=== PATIENT | male | born 1945 | race Caucasian/White ===

== ENCOUNTER 2018-08-30 11:00 | Inpatient (IN) | payer MEDICARE ==
[~2018-08-30] VITALS: Ht 172.7 cm; Wt 106.1 kg
--- OUTSIDE RECORDS SUMMARY | 2018-08-30 11:03 | XMS REPORT | Clinical Summary ---
Author Author NE[facility]MIAH [facility] Address Unknown Phone Unavailable Care Team Providers Care [employer] Name Role Phone Cristina Mayer MD PCP Unavailable Allergies No Known Allergies Medications End Date Status Medication Sig Dispensed Refills Start Date Active carvedilol (COREG) 6.25 Take 6.25 mg 0 MG tablet by mouth 2 (two) times daily with breakfast and dinner. Active lisinopril Take 2.5 mg 0 (PRINIVIL,ZESTRIL) 2.5 MG by mouth tablet daily. Active spironolactone Take 25 mg by 0 (ALDACTONE) 25 MG tablet mouth daily. Active sildenafil (VIAGRA) 50 MG Take 50 mg by 0 tablet mouth daily as needed for Erectile Dysfunction. Active albuterol HFA (VENTOLIN Inhale 2 0 HFA) 90 mcg/actuation puffs by inhaler mouth via inhaler every 6 (six) hours as needed for Wheezing. Active albuterol (PROVENTIL) 2.5 Take 2.5 mg 0 mg /3 mL (0.083 %) by nebulizer solution nebulization every 6 (six) hours as needed for Wheezing. Active amiodarone (PACERONE) 100 Take 100 mg 0 MG tablet by mouth daily. Active budesonide-formoterol Inhale 2 0 (SYMBICORT) 160-4.5 puffs by mcg/actuation inhaler mouth via inhaler 2 (two) times daily. Active bumetanide (BUMEX) 0.5 MG Take 0.5 mg 0 tablet by mouth daily. Active omega-3 fatty Take by mouth 0 acids-vitamin E 1,000 mg daily. Cap Active pravastatin (PRAVACHOL) Take 40 mg by 0 40 MG tablet mouth daily. Active AMOXICILLIN ORAL Take 500 mg 0 by mouth 4 (four) times daily. Active metFORMIN (GLUCOPHAGE) Resume on 1 tablet 0 500 MG tablet 03/05 with 5 supper, then take 2 times daily with breakfast and supper.. Active warfarin (COUMADIN) 5 MG Take one 30 tablet 1 tablet tablet daily 5 at at 5 PM. Active Problems Problem Noted Date Cardiomyopathy, Echo 09/29/2014 EF <20%, Mibi 10/05/2014 Ef 29%, Echo 03/03/2015 02/04/2015 EF 20-24%, Wearing LifeVest DM (diabetes mellitus) 03/03/2015 Systolic congestive heart failure, NYHA class 2 03/03/2015 PAF (paroxysmal atrial fibrillation) 03/03/2015 History of [place] (myocardial infarction) 03/03/2015 History of complete AV block 03/03/2015 Pacemaker, Since 199003/03/2015 S/P DDD AICD implant, SJM, Left, No DFTs, and Right-sided dual chamber PPM 03/03/2015 in-situ, SJM, set to VVI 30, atrial lead turned off due to high impedence, 03/03/2015 CAD (coronary artery disease) 11/02/2014 HTN (hypertension) HLD (hyperlipidemia) COPD (chronic obstructive pulmonary disease) Social History Date Tobacco Use Types Packs/Day Years Used Former Smoker Alcohol Use Drinks/Week oz/Week Comments No Sex Assigned at Date Recorded Not on file Industry Job Start Date Occupation Not on file Not on file Not on file Travel End Travel History Travel Start No recent travel history available. Last Filed Vital Signs Not on file Plan of Treatment Not on file Implants Device Identifier Shelf Expiration Date Model / Serial / Lot Implanted Type Area Manufactur er 12/16/2016 [id number] - 62CM / [id number] / Lead, Defibrillator Right ICD N/A: Heart [employer]: Ventricular 62cm Protect[address] - CARD [id number] RHY:PACING Implanted: Qty: 1 on 03/03/2015 by Wes Land MD 01/15/2017 [id number] / [id number] / Icd,Dual Chamber Df4 Connector ICD Left: Chest ST PRABHJOT [address] Wong [id number] MEDICAL Implanted: Qty: 1 on 03/03/2015 by INC Wes Haines MD 09/02/2016 [id number] - 45CM / [id number] / Lead,Pacing Capsurefix Novus 45cm - Pacemakers N/A: Heart [employer]: [id number] CARD Implanted: Qty: 1 on 03/03/2015 by RHY:PACING Wes Haines MD SYS Results Not on fileafter 08/29/2017 Insurance Payer Benefit Subscriber ID Type Phone Address Plan / Group [facility] MEDIC[facility] AD[facility] Advance Directives For more information, please contact: [facility] [address] [place] [phone] Date Inactivated Comments Code Status Date Activated 03/04/2015 1:24 PM Full Code 03/03/2015 6:31 AM This code status was determined by: Patient 11/02/2014 6:59 PM Full Code 11/02/2014 10:45 AM This code status was determined by: Patient
[2018-08-30] MEDS ORDERED: VITAMIN D1000 UNI1 PO (11:43)
[2018-08-30] MEDS ORDERED: VITAMIN B-121000 MCG PO (11:43)
[2018-08-30] MEDS ORDERED: SPIRONOLACTONE25 MG PO (11:43)
[2018-08-30] MEDS ORDERED: FISH OIL 1,2001 EAC1 PO (11:43)
[2018-08-30] MEDS ORDERED: METFORMIN HCL500 MG PO (11:43)
[2018-08-30] MEDS ORDERED: AMIODARONE HCL200 MG PO (11:43)
[2018-08-30] MEDS ORDERED: WARFARIN SODIU2.5 MG PO (11:43)
[2018-08-30] MEDS ORDERED: FLOMAX0.4 MG PO (11:43)
[2018-08-30] MEDS ORDERED: PROAIR HFA INH8.5 GM INH (11:43)
[2018-08-30] MEDS ORDERED: PRAVASTATIN SOD40 MG PO (11:43)
[2018-08-30] MEDS ORDERED: LISINOPRIL2.5 MG PO (11:43)
[2018-08-30] MEDS ORDERED: BUMETANIDE1 MG PO (11:43)
[2018-08-30] MEDS ORDERED: SYMBICORT 16010.2 GM INH (11:43)
[2018-08-30] MEDS ORDERED: CARVEDILOL3.125 MG PO (11:43)
[2018-08-30 11:49] LABS: BASOPHILS # (AUTO) 0.1 (0.0-0.1); BASOPHILS % 0.4 % (0.0-1.0); EOSINOPHILS # (AUTO) 0.1 (0.0-0.4); EOSINOPHILS % 0.8 % (0.0-6.0); HEMATOCRIT 38.7 % (38.2-49.6); HEMOGLOBIN 12.6 g/dL (14.0-18.0); LYMPHOCYTES % 7.7 % (18.0-39.1); MEAN CORPUSCULAR HEMOGLOBIN 32.1 pg (28-32); MEAN CORPUSCULAR HGB CONC 32.6 g/dL (31-35); MEAN CORPUSCULAR VOLUME 98.5 fL (81-99); MONOCYTES % 7.6 % (4.4-11.3); NEUTROPHILS # (AUTO) 10.8 (2.1-6.9); PLATELET COUNT 313 x10e3/uL (140-360); RED BLOOD COUNT 3.93 x10e6/uL (4.3-5.7); RED CELL DISTRIBUTION WIDTH 17.2 % (11.7-14.4)
[2018-08-30 12:00] LABS: INR 2.75; PROTHROMBIN TIME 29.8 seconds (11.9-14.5)
[2018-08-30 12:01] LABS: PARTIAL THROMBOPLASTIN TIME 40.5 seconds (23.8-35.5)
[2018-08-30 12:08] LABS: ALBUMIN 3.5 g/dL (3.5-5.0); ANION GAP 18.4 mmol/L (8-16); CALCIUM 9.7 mg/dL (8.4-10.2); CREATININE, SERUM 1.75 mg/dL (0.72-1.25); MAGNESIUM 1.8 MG/DL (1.3-2.1); POTASSIUM 4.4 mmol/L (3.5-5.1)
[2018-08-30 12:14] LABS: CREATINE KINASE MB 3.4 ng/mL (0-5.0)
--- NOTE | 2018-08-30 12:57 | Diagnostic Imaging Report ---
EXAMINATION: CHEST SINGLE (PORTABLE) COMPARISON: None INDICATION: Fluid buildup, shortness of breath ^SOB, CHF ^[id number] ^1215 DISCUSSION: Frontal view of the chest obtained at 1219 hours. HEART AND MEDIASTINUM: The heart is enlarged with pacer/defibrillator wires. There are 2 pacemaker battery packs, one each side of the chest. The distal aspect of the wires are poorly visualized due to underpenetration of the image. LUNGS: Bibasilar airspace opacities either atelectasis or pneumonia.. Pulmonary vascular markings are prominent. No interstitial edema. PLEURA: Small effusions may be present. No pneumothorax BONES AND SOFT TISSUES: No focal osseous lesion. The soft tissues are normal. IMPRESSION: Cardiomegaly and pulmonary vascular congestion. Bibasilar atelectasis or infiltrate. Small effusions cannot be excluded. Signed by: Dr. Fabián Quarles MD on 08/30/2018 12:54 PM
[2018-08-30] MEDS ORDERED: FUROSEMIDE INJ 10 MG/ML 2 ML VIAL ONE (13:55)
[2018-08-30] MEDS ORDERED: DEXTROSE 50% SYRINGE 50 ML IV PRN (14:00)
[2018-08-30] MEDS ORDERED: FUROSEMIDE INJ 10 MG/ML 4 ML VIAL IV NR (14:00)
[2018-08-30] MEDS ORDERED: LEVALBUTEROL HCL SOLN NEBU 0.63 MG/3 ML NEB INH PRN (14:00)
[2018-08-30] MEDS ORDERED: ONDANSETRON HCL INJ 2MG/ML 2ML 2 MG/ML VIAL IV PRN (14:00)
--- OUTSIDE RECORDS SUMMARY | 2018-08-30 14:10 | XMS REPORT ---
Author Author [facility] Address Unknown Phone Unavailable Care Team Providers Care Machine Long Goods Helper Name Role Phone Geovani PEREZ Unavailable Unavailable Problems This patient has no known problems. Allergies, Adverse Reactions, Alerts This patient has no known allergies or adverse reactions. Medications This patient has no known medications. Results Test Description Test Time Test Comments Text Results Atomic Results Result Comments CHEST SINGLE (PORTABLE) 2018-08-30 12:35:00 [place] [id number] Patient Name: BREONNA PIMENTEL MR #: [id number] : 1945 Age/Sex: 73/M Req #: [id number] Adm Physician: Ordered by: AXEL PEREZ MD Report #: [id number] Location: ER Room/Bed: Procedure: [id number] DX/CHEST SINGLE (PORTABLE) Exam Date: 08/30/18 Exam Time: 1215 REPORT STATUS: Signed EXAMINATION: CHEST SINGLE (PORTABLE) RADHAMES RISON: None INDICATION: Fluid buildup, shortness of breath SOB, CHF [id number] 1215 DISCUSSION: Frontal view of the chest obtained at 1219 hours. HEART AND MEDIASTINUM: The heart is enlarged with pacer/defibrillator wires. There are 2 pacemaker battery packs, one each side of the chest. The distal aspect of the wires are poorly visualized due to underpenetration of the image. LUNGS: Bibasilar airspace opacities either atelectasis or pneumonia.. Pulmonary vascular markings are prominent. No interstitial edema. PLEURA: Small effusions may be present. No p neumothorax BONES AND SOFT TISSUES: No focal osseous lesion. The soft tissues are normal. IMPRESSION: Cardiomegaly and pulmonary vascular congestion. Bibasilar atelectasis or infiltrate. Small effusions cannot be excluded. Signed by: Dr. Kirby Quarles MD on 08/30/2018 12:54 PM Dictated By: KIRBY QUARLES MD 1250 Transcribed By: NAHOMI on 08/30/18 1257 COPY TO: AXEL PEREZ MD
--- OUTSIDE RECORDS SUMMARY | 2018-08-30 14:10 | XMS REPORT | Clinical Summary ---
Author Author NEHEMIAH [facility]St[facility] CenterRadiusIQ IncNicklaus [facility] Address Unknown Phone Unavailable Care Team Providers Care Forming Machine Adjuster Name Role Phone Cristina Mayer MD PCP [...] PAF (paroxysmal atrial fibrillation) 03/03/2015 History of [place] (myocardial infarction) 03/03/2015 History of complete AV [...] Manufactur er 12/16/2016 [id number] - 62CM / [id number] / Lead, Defibrillator Right ICD N/A: Heart [employer]: Ventricular 62cm Protecta Dr - CARD [id number] RHY:PACING Implanted: Qty: 1 on 03/03/2015 by Wes Land MD 01/15/2017 [id number] / [id number] / Icd,Dual Chamber Df4 Connector ICD Left: Chest ST PRABHJOT Ell[address] Wong [id number] MEDICAL Implanted: Qty: 1 on 03/03/2015 by INC Wes Haines MD 09/02/2016 4076 - 45CM / [id number] / Lead,Pacing Capsurefix Novus 45cm - Pacemakers N/A: Heart [employer]: [id number] CARD Implanted: Qty: 1 on 03/03/2015 by RHY:PACING Wes Haines MD SYS Results Not on fileafter 08/29/2017 Insurance Payer Benefit Subscriber ID Type Phone Address Plan / Group [facility] x[facility]xx MEDICARE ADV Advance Directives For more information, please contact: [facility] [address] [place] [phone] Date Inactivated Comments Code Status Date Activated 03/04/2015 1:24 PM Full Code 03/03/2015 6:31 AM This code status was determined by: Patient 11/02/2014 6:59 PM Full Code 11/02/2014 10:45 AM This code status was determined by: Patient
--- NOTE | 2018-08-30 15:00 | NUR ---
Received patient from ER, a/ox3, CC: SOB, difficulties breathing and couldn't catch his breath walking this morning Head: Normocephalic, scant hair texture EENT: Anicteric, wears glasses, nasal turbinates intact, no drainage, no epitaxis Resp: LS diminished all lobes, Chest, S1, S2 and S3 murmur noted, irregular heart rate, mild JVD, BLE +3 pitting edema Abdomen: Large and round, + bowel sounds Skin: scattered ecchymotic areas to BLE, dry scabbed areas, no open skin areas Neuro: No focal/neuro deficits Musculoskeletal: Moves all extremities, ambulates with a cane IV line in place to [facility], KVO Patient on aggressive diuresis plan with lashuber, rounds at this time by attending. Urine collected for urinalysis, call light within reach, bed in low locked position, home meds reconciled, will monitor.
[2018-08-30 15:23] LABS: BILIRUBIN,URINE NEGATIVE (NEGATIVE); CLARITY,URINE CLEAR (CLEAR); COLOR,URINE YELLOW (YELLOW); KETONES,URINE NEGATIVE (NEGATIVE); LEUKOCYTE ESTERASE ,URINE NEGATIVE (NEGATIVE); NITRITE,URINE NEGATIVE (NEGATIVE); PROTEIN,URINE DIPSTICK TRACE (NEGATIVE); URINE UROBILINOGEN 1 mg/dL (0.2 - 1)
[2018-08-30] MEDS: AMIODARONE HCL 200 MG TAB PO SCH (15:30)
[2018-08-30 15:33] VITALS: BP 120/90
[2018-08-30 15:36] LABS: BACTERIA,URINE RARE /HPF; EPITHELIAL CELLS,URINE RARE /LPF; RBC,URINE 0-5 /HPF (0-5); WBC,URINE (MAN) 0-5 /HPF (0-5)
[2018-08-30] MEDS ORDERED: INSULIN LISPRO 100 UNIT/1 ML 3ML VIAL SQ SCH (16:30)
[2018-08-30] MEDS: INSULIN LISPRO 100 UNIT/1 ML 3ML VIAL SQ SCH ×2 (16:30→20:40)
[2018-08-30] MEDS: WARFARIN SOD 2.5 MG TAB PO SCH (16:37)
[2018-08-30] MEDS: CARVEDILOL 3.125 MG TAB PO SCH (16:37)
--- NOTE | 2018-08-30 16:43 | NUR ---
Patient provided with a walker, OOB and ambulated to bathroom. Echo being done at this time, [id number]% on RA, no resp distress, will monitor.
--- NOTE | 2018-08-30 19:45 | NUR ---
RECEIVED PATIENT AOX4, PRESENTS SOB. HELPED PATIENT IN RECLINER, STATES THAT HE BREATHES BETTER SITTING UP IN CHAIR. PATIENT DISPLAYED NO SIGNS OF DISTRESS SINCE. CONTINUING TO MONITOR SITUATION.
[2018-08-30 20:00] VITALS: BP 101/68
--- NOTE | 2018-08-30 20:30 | NUR ---
PATIENT STATES THAT HE IS BREATHING A LOT BETTER SINCE SITTING IN RECLINER AND REQUESTED TO SLEEP THERE TONIGHT. NO SIGNS OF DISTRESS NOTED, PATIENT RESTING COMFORTABLY WITH CPAP MACHINE. REFILLED MACHINE WITH DISTILLED WATER, WILL CONTINUE TO MONITOR.
[2018-08-30 20:40] VITALS: BP 101/68
[2018-08-30] MEDS: ISOSORBIDE DINITRATE 20 MG TAB PO SCH (20:40)
[2018-08-30] MEDS: PRAVASTATIN 20 MG TAB PO SCH (20:40)
[2018-08-30] MEDS: BUMETANIDE INJ 0.25MG/ML 4ML VIAL IV SCH (20:40)
[2018-08-30] MEDS: HYDRALAZINE HCL 10 MG TAB PO SCH (22:00)
[2018-08-31] VITALS (8 sets, daily range): BP systolic 107–135; BP diastolic 63–79
[2018-08-31] MEDS: HYDRALAZINE HCL 10 MG TAB PO SCH ×3 (06:04→21:44)
--- NOTE | 2018-08-31 06:07 | NUR ---
PATIENT STATED THAT HE DID NOT SLEEP WELL THE LAST COUPLE OF HOURS. ALSO STATED THAT HE STILL FELT SHORT OF BREATH AND REQUESTED O2. RETRIEVED NASAL CANNULA AND PUT PATIENT ON 2L PER O2 PROTOCOL, WILL CONTINUE TO MONITOR.
--- NOTE | 2018-08-31 06:24 | Diagnostic Imaging Report ---
EXAMINATION: CHEST SINGLE (PORTABLE) COMPARISON: 08/30/2018. INDICATION: Congestive heart failure exacerbation. DISCUSSION: HEART AND MEDIASTINUM: The cardiac silhouette is moderately enlarged. Redemonstration of 2 pacemaker battery packs, one each side of the chest. LUNGS: Bibasilar airspace opacities either atelectasis or pneumonia.. Pulmonary venous congestion somewhat decreased since the prior examination. PLEURA: Bilateral small pleural effusions. No pneumothorax BONES AND SOFT TISSUES: No focal osseous lesion. The soft tissues are normal. IMPRESSION: Pulmonary venous congestion somewhat decreased since the prior examination. Signed by: Dr. Zaynab Limon M.D. on 08/31/2018 6:21 AM
[2018-08-31 06:48] LABS: BASOPHILS # (AUTO) 0.1 (0.0-0.1); BASOPHILS % 0.5 % (0.0-1.0); EOSINOPHILS # (AUTO) 0.1 (0.0-0.4); EOSINOPHILS % 0.5 % (0.0-6.0); HEMATOCRIT 34.3 % (38.2-49.6); HEMOGLOBIN 11.5 g/dL (14.0-18.0); LYMPHOCYTES # (AUTO) 1.3 (1.0-3.2); LYMPHOCYTES % 12.8 % (18.0-39.1); MEAN CORPUSCULAR HGB CONC 33.5 g/dL (31-35); MEAN CORPUSCULAR VOLUME 98.3 fL (81-99); MONOCYTES # (AUTO) 0.9 (0.2-0.8); MONOCYTES % 9.5 % (4.4-11.3); NEUTROPHILS # (AUTO) 7.6 (2.1-6.9); NEUTROPHILS % 76.3 % (38.7-80.0); PLATELET COUNT 267 x10e3/uL (140-360); RED BLOOD COUNT 3.49 x10e6/uL (4.3-5.7); RED CELL DISTRIBUTION WIDTH 17.2 % (11.7-14.4)
[2018-08-31 06:59] LABS: INR 2.85; PROTHROMBIN TIME 30.7 seconds (11.9-14.5)
[2018-08-31] MEDS: BUDESONIDE/FORMOTEROL 160/4.5MCG INHALER INH SCH ×2 (07:00→19:15)
[2018-08-31 07:02] LABS: MAGNESIUM 1.7 MG/DL (1.3-2.1)
--- NOTE | 2018-08-31 07:13 | NUR ---
PATIENT OUT OF BED TO RECLINING CHAIR, NO DISTRESS NOTED. PITTING EDEMA TO LOWER EXTREMITIES; REDNESS AND SWELLING TO LEFT FOOT WITH SMALL CLOSED BLISTERS. DENIED PAIN AT THIS TIME. CALL LIGHT AT REACH.
[2018-08-31] MEDS: INSULIN LISPRO 100 UNIT/1 ML 3ML VIAL SQ SCH ×4 (07:30→21:00)
[2018-08-31 07:31] LABS: ALBUMIN 3.3 g/dL (3.5-5.0); ALBUMIN/GLOBULIN RATIO 1.1 (0.8-2.0); ANION GAP 17.7 mmol/L (8-16); CALCIUM 9.3 mg/dL (8.4-10.2); CHOL/HDL RATIO 2.1 (3.9-4.7); CREATININE, SERUM 1.75 mg/dL (0.72-1.25); POTASSIUM 4.7 mmol/L (3.5-5.1)
[2018-08-31] MEDS ORDERED: FUROSEMIDE INJ 10 MG/ML 4 ML VIAL IV SCH (09:00)
[2018-08-31] MEDS: CARVEDILOL 3.125 MG TAB PO SCH ×2 (09:00→17:28)
[2018-08-31] MEDS: BUMETANIDE INJ 0.25MG/ML 4ML VIAL IV SCH ×2 (09:11→21:00)
[2018-08-31] MEDS: ISOSORBIDE DINITRATE 20 MG TAB PO SCH ×3 (09:12→21:00)
--- NOTE | 2018-08-31 11:31 | NUR ---
PATIENT SITTING UP IN THE RECLINING CHAIR TALKING TO FAMILY MEMBER VISITING, NO DISTRESS NOTED. O2 IN PLACE VIA N/C. CALL LIGHT AT REACH.
--- NOTE | 2018-08-31 16:38 | NUR ---
WALKING ROUND MADE, URINAL EMPTIED WITH 200CC OF YELLOW URINE. PATIENT RESTING IN RECLINING CHAIR, CALL LIGHT AT REACH.
[2018-08-31] MEDS: WARFARIN SOD 2.5 MG TAB PO SCH (17:29)
[2018-08-31] MEDS: PRAVASTATIN 20 MG TAB PO SCH (21:00)
--- NOTE | 2018-08-31 21:30 | NUR ---
PATIENT IS RESTING IN RECLINER, NO RESPIRATORY DISTRESS NOTED. PATIENT IS CURRENTLY WITH CPAP MACHINE ON, O2 NASAL CANNULA IS NEAR, CALL LIGHT WITHIN EASY REACH, WILL CONTINUE TO MONITOR.
[2018-09-01] VITALS (8 sets, daily range): BP systolic 103–124; BP diastolic 68–86
--- NOTE | 2018-09-01 03:29 | NUR ---
UPON MAKING ROUNDS PATIENT RELAXING IN RECLINER, BOTH EYES CLOSED, CPAP MACHINE IN PLACE. NO SIGNS OF DISTRESS NOTED, CALL LIGHT WITHIN REACH, WILL CONTINUE TO MONITOR.
[2018-09-01] MEDS: HYDRALAZINE HCL 10 MG TAB PO SCH ×3 (05:56→22:00)
--- NOTE | 2018-09-01 06:21 | NUR ---
CHEST X-RAY IS BEING DONE FOR PATIENT RIGHT NOW.
[2018-09-01 06:26] LABS: BASOPHILS # (AUTO) 0.1 (0.0-0.1); BASOPHILS % 0.5 % (0.0-1.0); EOSINOPHILS # (AUTO) 0.1 (0.0-0.4); EOSINOPHILS % 0.6 % (0.0-6.0); HEMATOCRIT 38.5 % (38.2-49.6); HEMOGLOBIN 12.3 g/dL (14.0-18.0); LYMPHOCYTES # (AUTO) 1.4 (1.0-3.2); LYMPHOCYTES % 12.3 % (18.0-39.1); MEAN CORPUSCULAR HEMOGLOBIN 32.4 pg (28-32); MEAN CORPUSCULAR HGB CONC 31.9 g/dL (31-35); MEAN CORPUSCULAR VOLUME 101.3 fL (81-99); MONOCYTES % 8.6 % (4.4-11.3); NEUTROPHILS # (AUTO) 8.7 (2.1-6.9); NEUTROPHILS % 77.6 % (38.7-80.0); PLATELET COUNT 313 x10e3/uL (140-360); RED CELL DISTRIBUTION WIDTH 17.2 % (11.7-14.4)
[2018-09-01 06:38] LABS: INR 2.58; PROTHROMBIN TIME 28.4 seconds (11.9-14.5)
[2018-09-01 06:51] LABS: ALBUMIN 3.6 g/dL (3.5-5.0); ANION GAP 16.1 mmol/L (8-16); CALCIUM 9.7 mg/dL (8.4-10.2); MAGNESIUM 1.7 MG/DL (1.3-2.1); POTASSIUM 4.1 mmol/L (3.5-5.1)
--- NOTE | 2018-09-01 06:51 | Diagnostic Imaging Report ---
EXAMINATION: CHEST SINGLE (PORTABLE) COMPARISON: 08/30/2018. INDICATION: Congestive heart failure exacerbation. DISCUSSION: HEART AND MEDIASTINUM: The cardiac silhouette is moderately enlarged. Redemonstration of 2 pacemaker battery packs, one each side of the chest. LUNGS: Bibasilar airspace opacities either atelectasis or pneumonia.. Pulmonary venous congestion is unchanged. PLEURA: Bilateral small pleural effusions. No pneumothorax BONES AND SOFT TISSUES: No focal osseous lesion. The soft tissues are normal. IMPRESSION: Stable exam. Pulmonary venous congestion is unchanged. Signed by: Dr. Zaynab Limon M.D. on 09/01/2018 6:48 AM
[2018-09-01] MEDS: BUDESONIDE/FORMOTEROL 160/4.5MCG INHALER INH SCH ×2 (07:00→19:20)
[2018-09-01] MEDS: INSULIN LISPRO 100 UNIT/1 ML 3ML VIAL SQ SCH ×4 (07:30→21:00)
--- NOTE | 2018-09-01 07:30 | NUR ---
REC'D PATIENT AAOX3, SITTING ON RECLINER CHAIR, OXYGEN RUNNING AT 2L/MIN, IV TO LEFT FA 20 GAUGE IS CLEAN AND INTACT, CPAP AT BEDSIDE, WALKER AT BEDSIDE, TELE BOX #12 AND RUNNING AT [employer] AND HAS PACEMAKER. CALL GLYNN IS WITHIN REACH AND NOTIFIED PATIENT TO ASK FOR ASSISTANCE WHEN NEED IT.
[2018-09-01] MEDS: CARVEDILOL 3.125 MG TAB PO SCH ×2 (08:55→17:16)
[2018-09-01] MEDS: ISOSORBIDE DINITRATE 20 MG TAB PO SCH ×4 (08:55→21:26)
[2018-09-01] MEDS: BUMETANIDE INJ 0.25MG/ML 4ML VIAL IV SCH ×3 (08:55→22:00)
--- NOTE | 2018-09-01 09:55 | NUR ---
PT NOTIFIED THAT PATIENT REFUSED THERAPY. STATED HE WILL TRY AGAIN LATER TO GET PATIENT TO PARTICIPATE IN PT.
--- NOTE | 2018-09-01 11:15 | Consultation ---
DATE OF CONSULTATION: 09/01/2018 HISTORY OF PRESENT ILLNESS: This 73-year-old gentleman, known to our Nephrology service, has underlying history of diabetes, hypertension, hyperlipidemia, and cardiomyopathy with ejection fraction of 25%, came in with worsening shortness of breath and worsening lower extremity edema. Currently sitting up in a lazy boy. He is awake, alert, and oriented x3, no apparent distress. Currently, he is saturating 96% on nasal cannula. Laboratory test shows white count 11.2 with a hemoglobin of 12.3, potassium 4.1, creatinine 2, has elevated bilirubin of 1.6 with AST 197, ALT 209. His BNP level is 1637. CURRENT MEDICATIONS: The patient is on isosorbide 10 mg p.o. t.i.d. He is on pravastatin 40 mg at bedtime, Coumadin 5 mg daily, carvedilol 3.125 twice a day, Bumex 1 mg IV q.12 h., amiodarone 100 mg p.o. q.48 h., insulin, hydralazine 10 mg p.r.n. and then 10 mg p.o. q.8 h. SOCIAL HISTORY: He does not smoke or drink. ALLERGIES: NO APPARENT DRUG ALLERGIES. PAST MEDICAL HISTORY: As above. History of sleep apnea. He denies any history of prostate enlargement. History of pleural effusion. Elevated INR, on Coumadin. PHYSICAL EXAMINATION: GENERAL: Awake, alert, oriented, sitting up in chair. VITAL SIGNS: Blood pressure 109/81, pulse rate 79, afebrile. Oxygen saturation 98% on nasal cannula 2 L. HEAD AND NECK: Cornea clear. Oral mucosa moist. Neck veins not distended. LUNGS: Decreased air entry at bases with bibasilar rales. HEART: S1, S2 audible. ABDOMEN: Otherwise distended, soft, nontender. Flanks full. EXTREMITIES: Lower extremity about 3+ edema bilateral pretibial. IMPRESSION: Congestive heart failure, cardiomyopathy, acute on chronic kidney failure, multiple comorbidities with elevated liver function enzymes. He does have some skin lesions on the back, which may need investigation by a associate sales representative. In the meantime, we will optimize diuretics, we will change the dose of Bumex to 2 mg q.8 h., we will start metolazone 20 mg p.o. daily first dose now, knee high CLAUDIA hoses, we will obtain spot urine protein-creatinine ratio, kidney ultrasound. Strict intake and output. Further recommendations to follow. MD STEWART Murcia/FILIBERTO /[id number]
[2018-09-01] MEDS: METOLAZONE 5 MG TAB PO SCH (11:30)
--- NOTE | 2018-09-01 13:56 | Consultation ---
DATE OF CONSULTATION: 09/01/2018 REASON FOR CONSULTATION: Cardiomyopathy. CHIEF COMPLAINT: Shortness of breath and lower extremity edema. HISTORY OF PRESENT ILLNESS: This is a 73-year-old male with history of nonischemic cardiomyopathy, hypertension, diabetes, hyperlipidemia, chronic kidney disease, AFib, COPD, uses CPAP at night. The patient presents to [facility] ER with complaints of shortness of breath and lower extremity edema for several days. Echo was done, prelim echo showing EF less than 25% range. Cardiology was consulted to evaluate the patient. The patient is seen in room and reports he is being followed with Jayy, Dr. Dickson and Dr. Haines. Apparently, he says he has an appointment with them on October 02, 2018. However, the patient presents with shortness of breath, lower extremity edema for at least greater than four weeks, reports that he went and saw his primary care physician with these complaints about two weeks ago in which they increased the Bumex from 0.5 to 1 mg daily. The patient states that he was with his significant other at the store getting prescriptions and was unable to walk into the store due to his extreme shortness of breath, so therefore his significant other brought him to the ER for further evaluation. Chest x-ray noted showing pulmonary edema, BNP in 1600 range. The patient has also been seen by Renal and is currently being diuresed with Bumex and metolazone therapy. The patient denies any chest pains at this time. PAST MEDICAL HISTORY: Nonischemic cardiomyopathy apparently about 25% per the patient, hypertension, diabetes, hyperlipidemia, chronic kidney disease, AFib, COPD, uses CPAP in the evenings. PAST SURGICAL HISTORY: Include pacemaker x2, he does have one on the right chest wall and the most recent is on the left chest wall in 2014. SOCIAL HISTORY: He is a ; however, he does live with his significant other. 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 He denies any alcohol or tobacco use. FAMILY HISTORY: Apparently, his mother at the age 80 with questionable CAD. Father at the age of 80 also of unknown cause. HOME MEDICATIONS: Include amiodarone 100 mg every other day, Bumex 1 mg p.o. daily, Coreg 6.25 mg b.i.d., lisinopril 2.5 mg daily, metformin 1000 mg p.o. b.i.d., pravastatin 40 mg daily, spironolactone 25 mg daily, warfarin 5 mg daily, Flomax 0.4 mg daily, ProAir 1-2 sprays inhaler as needed, Symbicort 160-4.5 one spray b.i.d. ALLERGIES: NO KNOWN ALLERGIES. REVIEW OF SYSTEMS: GENERAL: Positive weight gain greater than 10 pounds in recent weeks. Positive fatigue. Denies any fevers, chills, night sweats. SKIN: Denies any rashes or sores. HEENT: Denies any nausea, vomiting, vision changes, blurred vision, double vision, epistaxis, sore throat, or swollen neck. CARDIAC: Denies any chest pain; however, positive for dyspnea on exertion, positive for orthopnea, positive for PND, positive for lower extremity edema. RESPIRATORY: Positive for shortness of breath. Denies any coughing or hemoptysis. GI: Reports good appetite. Denies any nausea, vomiting, any rectal bleeding, any melena, hematemesis. URINARY: Report frequent urination. Positive for nocturia. Denies any hematuria or dysuria. VASCULAR: Positive for lower extremity edema. MUSCULOSKELETAL: Positive for generalized joint pains, back pain. NEUROLOGIC: Denies any tremors, tingling, weakness, paralysis, fainting, blackouts. HEMATOLOGY: Denies anemia, easy bruising. ENDOCRINE: Denies any heat or cold intolerance, any polyuria, polydipsia, polyphagia. PHYSICAL EXAMINATION: VITAL SIGNS: Height 68 inches, weight 262 pounds, BMI 39. Temperature 96.8, pulse 80, blood pressure 103/69, pulse ox 97% on 2 L nasal cannula. GENERAL: Appears stated age, reliable informant. HEENT: Normocephalic. Pupils are equal and reactive. Extraocular movements intact. NECK: Trachea midline. No carotid bruit. No JVD noted. HEART: Regular rate and rhythm. There is pacemaker on the right chest wall and also a pacemaker on the left chest wall. LUNGS: Bilateral breath sounds with crackles throughout. ABDOMEN: Soft, nontender. No organomegaly noted. MUSCULOSKELETAL: Good muscle strength throughout. Positive for lower extremity swelling +2 to 3. VASCULAR: +2 bilateral radial pulses, +1 DP, PT pulses bilaterally. NEUROLOGIC: Cranial nerves 2 through 12 seem intact. LABORATORY DATA: Sodium 140, potassium 4.7, chloride 99, BUN 39, and creatinine 1.75. BNP 1637. CBC; white count 11, hemoglobin 12.3, hematocrit 38, platelets 313. INR 2.5. Initial chest x-ray on 16 showing cardiomegaly with pulmonary vascular congestion. EKG showing ventricular paced rhythm, heart rate 80. ASSESSMENT: 1. Acute on chronic systolic heart failure. 2. Nonischemic cardiomyopathy. 3. Chronic kidney disease. 4. History of atrial fibrillation. 5. Diabetes. 6. Hyperlipidemia. 7. Obesity. PLAN: 1. The patient presents with greater than four weeks of shortness of breath and lower extremity edema. His diuretics were adjusted by his primary care physician, however, without much effect. Renal is on board and is optimizing volume status. 2. We will continue the patient's heart failure therapy, however, with withhold parameters. 3. Echo has been done and will be reviewed by Cardiology attending. 4. Continue the patient's Coumadin therapy and goal to be between 2 and 3. The patient at goal currently. 5. Long discussion with the patient regarding treatment plan. We will continue to monitor the patient and adjust cardiac therapy as clinical course dictates. Thank you very much for this consult. Seen and examined Agree with note Long visit > 60 min. Dictated by Blu Houston NP Mraia Thomas MD DC/FILIBERTO /[id number] JOSE L
--- NOTE | 2018-09-01 14:00 | NUR ---
PATIENT IS SITTING ON THE RECLINER CHAIR. OXYGEN RUNNING AT 2L/MIN VIA NC AND NO S/S OF DISTRESS. CALL GLYNN WITHIN REACH.
[2018-09-01] MEDS: AMIODARONE HCL 200 MG TAB PO SCH (15:53)
--- NOTE | 2018-09-01 16:17 | NUR ---
Nutrition Intervention Note RD Recommendation(s) for Physician: -Rec adding cardiac to ADA diet as medically appropriate -Rec Glucerna BID to increase protein-calorie intake -Pt refused education on low sodium diet. Plan of Care: RD following, monitoring for tolerance and adequacy, ONS rec Nutrition reason for involvement: Diagnosis RD Assessment 09/01 73yo M, who was admitted for shortness of breath and lower extremity edema for several days. Currently on diuretics. Visited pt in the room. Pt reported poor appetite with <25% observed lunch intake today. Pt denied any nausea or vomiting. LBM 09/01. No chewing or swallowing difficulty noted. Pt reported 20-30lbs weight gain from fluids retention. RD offered Glucerna BID to increase PO intake and pt was agreeable. Pt was not interested in diet education. Will continue to monitor and follow. Principal Problems/Diagnoses: CHF exacerbation PMH: Nonischemic cardiomyopathy apparently about 25% per the patient, hypertension, diabetes, hyperlipidemia, chronic kidney disease, AFib, COPD, uses CPAP in the evenings. GI: abdomen soft, round, LBM 09/01 Skin: No pressure ulcer noted Labs: (09/01) BUN 37 H, Creatinine 2.00 H, AST 197 H, ALT 209 H Meds: diuretics, Coumadin Ht: 68in Wt: 262lb BMI: 39.8kg/m2 IBW: 154lb Malnutrition Evaluation (09/01) The patient does not meet criteria for a specified degree of malnutrition at this time. Will re-evaluate at follow-up as appropriate. Nutrition Prescription (Diet Order): ADA diet Estimated Nutritional Needs: Calories: 1540 1750kcal(22-25kcal/kg/d) Weight used: IBW Protein: 105 140g(1.5-2g/kg/d) Weight used: IBW Diet Adequacy: Not meeting calorie needs, Not meeting protein needs Diet Education Needs Assessment: Diet education indicated, but patient declined. Discussed fluids restriction Nutrition Care Level: low Nutrition Diagnosis: Inadequate oral intake related to CHF as evidenced by poor appetite with <50% meal intake. Goal: Patient will meet 75-100% of estimated needs by follow up Progress: N/A Interventions: Modified diet, Commercial beverage Monitoring/Evaluation: Total energy intake, Total protein intake, Modified diet, Liquid supplement, Weight change Signed: Cara Hurst MS, RD, LD
[2018-09-01] MEDS: WARFARIN SOD 2.5 MG TAB PO SCH (17:16)
--- NOTE | 2018-09-01 17:38 | Diagnostic Imaging Report ---
EXAM: Renal Ultrasound INDICATION: ^asher no doppler COMPARISON: None TECHNIQUE: Transverse and longitudinal images of the kidneys and bladder were obtained. FINDINGS: Right Kidney: Size: 10.2 x 4.6 x 4.6 cm Echogenicity: Normal Parenchymal thickness: Normal Collecting system: No hydronephrosis Stones: None Cyst/Mass: None Left Kidney: Size: 9.9 x 6.4 x 4.3 cm Echogenicity: Normal Parenchymal thickness: Normal Collecting system: No hydronephrosis Stones: None Cyst/Mass: 1.5 x 1.7 x 2.0 cm simple cyst in the interpolar region. Bladder: Normal Bilateral ureteral jets are not visualized. Moderate ascites. IMPRESSION: 1. 2.0 cm simple left renal cyst. Otherwise, unremarkable kidneys. 2. Moderate ascites. Signed by: Dr. Martín Kwon M.D. on 09/01/2018 5:34 PM
--- NOTE | 2018-09-01 18:04 | NUR ---
PATIENT SITTING UP IN RECLINER, OXYGEN AT 3L/MIN VIA NC, NO S/S OF DISTRESS, EXPERIENCING SOB, WALKER NEXT TO RECLINER, AND CALL GLYNN WITHIN REACH. REMINDED PATIENT TO CALL FOR ASSISTANCE WHEN NEED TO USE THE BATHROOM.
--- NOTE | 2018-09-01 20:07 | NUR ---
RECEIVED PT SITTING ON THE CHAIR .DENIES PAIN RESPIRATIONS A RE EVEN AND UNLABORED Addendum: 09/01/18 at 2008 by Aric Mcgill RN WRONG PT
--- NOTE | 2018-09-01 20:09 | NUR ---
RECEIVED PT SITTING ON THE CHAIR .RESPIRATIONS ARE EVEN AND UNLABORED LOWER EXTREMITIES SWOLLEN .CALL LIGHT WITH IN REACH .DENIES PAIN .CONTINUE TO MONITOR
[2018-09-01] MEDS: PRAVASTATIN 20 MG TAB PO SCH (21:26)
[2018-09-02] VITALS (8 sets, daily range): BP systolic 96–116; BP diastolic 58–83
--- NOTE | 2018-09-02 03:03 | NUR ---
B/P MEDICATION NOT GIVEN BECAUSE B/P IS LOW . .CONTINUE TO MONITOR
[2018-09-02] MEDS: HYDRALAZINE HCL 10 MG TAB PO SCH ×2 (05:47→14:00)
[2018-09-02 05:54] LABS: BASOPHILS % 0.4 % (0.0-1.0); EOSINOPHILS # (AUTO) 0.1 (0.0-0.4); EOSINOPHILS % 0.8 % (0.0-6.0); HEMATOCRIT 34.3 % (38.2-49.6); HEMOGLOBIN 11.6 g/dL (14.0-18.0); LYMPHOCYTES # (AUTO) 1.1 (1.0-3.2); LYMPHOCYTES % 10.1 % (18.0-39.1); MEAN CORPUSCULAR HEMOGLOBIN 33.2 pg (28-32); MEAN CORPUSCULAR HGB CONC 33.8 g/dL (31-35); MEAN CORPUSCULAR VOLUME 98.3 fL (81-99); MONOCYTES # (AUTO) 0.9 (0.2-0.8); MONOCYTES % 8.1 % (4.4-11.3); NEUTROPHILS # (AUTO) 8.5 (2.1-6.9); PLATELET COUNT 269 x10e3/uL (140-360); RED BLOOD COUNT 3.49 x10e6/uL (4.3-5.7); RED CELL DISTRIBUTION WIDTH 16.8 % (11.7-14.4)
[2018-09-02] MEDS: BUMETANIDE INJ 0.25MG/ML 4ML VIAL IV SCH ×3 (06:00→22:00)
[2018-09-02 06:24] LABS: ALBUMIN 3.3 g/dL (3.5-5.0); ANION GAP 15.2 mmol/L (8-16); BILIRUBIN,DIRECT 0.8 mg/dL (0.0-0.5); CALCIUM 9.3 mg/dL (8.4-10.2); CREATININE, SERUM 1.96 mg/dL (0.72-1.25); MAGNESIUM 1.7 MG/DL (1.3-2.1); POTASSIUM 4.2 mmol/L (3.5-5.1)
[2018-09-02 06:26] LABS: ALBUMIN 3.3 g/dL (3.5-5.0); ALBUMIN/GLOBULIN RATIO 1.1 (0.8-2.0); ANION GAP 14.5 mmol/L (8-16); CALCIUM 9.3 mg/dL (8.4-10.2); CREATININE, SERUM 1.95 mg/dL (0.72-1.25); POTASSIUM 3.5 mmol/L (3.5-5.1)
[2018-09-02] MEDS: BUDESONIDE/FORMOTEROL 160/4.5MCG INHALER INH SCH ×2 (07:00→19:00)
--- NOTE | 2018-09-02 07:00 | Diagnostic Imaging Report ---
EXAMINATION: CHEST SINGLE (PORTABLE) INDICATION: ^CHF ^[id number] ^[id number] COMPARISON: 09/01/2018 FINDINGS: AP view TUBES and LINES: Stable bilateral cardiac device is. LUNGS and pleura: Pulmonary vascular congestion, mild to moderate interstitial edema, and bilateral pleural effusions. HEART AND MEDIASTINUM: The cardiac silhouette is enlarged. BONES AND SOFT TISSUES: No acute osseous lesion. Soft tissues are unremarkable. UPPER ABDOMEN: No free air under the diaphragm. IMPRESSION: No significant interval change from prior exam. Signed by: Dr. Johnny Avila MD on 09/02/2018 6:57 AM
--- NOTE | 2018-09-02 07:03 | NUR ---
PT RESTING AND NO ACUTE DISTRESS NOTED .CALL LIGHT WITH IN REACH ,CONTINUE TO MONITOR
--- NOTE | 2018-09-02 07:03 | NUR ---
REPORT GIVEN TO THE ONCOMING NURSE
[2018-09-02] MEDS: INSULIN LISPRO 100 UNIT/1 ML 3ML VIAL SQ SCH ×4 (07:30→21:00)
--- NOTE | 2018-09-02 07:30 | NUR ---
REC'D PT AAOX3, SITTING ON RECLINER CHAIR, OXYGEN BEING DELIVERED VIA NC RUNNING AT 3L/MIN, IV TO LEFT AC CLEAN AND INTACT. NO S/S OF DISTRESS. WALKER AT THE BEDSIDE. REMINDED PATIENT TO CALL FOR ASSISTANCE. BED IN LOWEST POSITION, SIDE RAILS UP X2, CALL GLYNN WITHIN REACH.
--- NOTE | 2018-09-02 07:30 | NUR ---
MORNING BLOOD PRESSURE OF 96/66. RE-CHECKED BLOOD PRESSURE AND RECV'D 116/73. HELD BLOOD PRESSURE PILLS DUE TO RECEIVING DIURETICS FOR FLUID RETENTION. WILL CON'T TO MONITOR PATIENT'S BLOOD PRESSURE.
[2018-09-02] MEDS: ISOSORBIDE DINITRATE 20 MG TAB PO SCH ×3 (09:00→21:00)
[2018-09-02] MEDS: CARVEDILOL 3.125 MG TAB PO SCH ×2 (09:00→17:56)
[2018-09-02] MEDS: METOLAZONE 5 MG TAB PO SCH (09:12)
--- NOTE | 2018-09-02 09:20 | NUR ---
PHYSICAL THERAPY EVALUATING PATIENT.
--- NOTE | 2018-09-02 09:40 | NUR ---
PHYSICAL THERAPY FINISHED EVALUATING PATIENT. PER PHYSICAL THERAPY, PATIENT WALKED 90 FEET WITH 2 STANDING BREAKS AND THAT PATIENT IS AT THE BASELINE - MODIFIED INDEPENDENCE. PHYSICAL THERAPIST DISCONTINUED PHYSICAL THERAPY.
[2018-09-02] MEDS: WARFARIN SOD 2.5 MG TAB PO SCH (17:56)
--- NOTE | 2018-09-02 18:44 | NUR ---
PATIENT IS SITTING ON RECLINER CHAIR WITH OXYGEN BEING DELIVERED AT 3L/MIN VIA NC. NO S/S OF DISTRESS. CALL GLYNN WITHIN REACH.
--- NOTE | 2018-09-02 19:21 | NUR ---
RECEIVED PT SITTING ON THE CHAIR .RESPIRATIONS ARE EVEN AND UNLABORED BILATERAL LOWER EXTREMITIES WITH CLAUDIA MIRIAN D/T SWELLING CALL LIGHT WITH IN REACH .DENIES PAIN .CONTINUE TO MONITOR
[2018-09-02] MEDS: PRAVASTATIN 20 MG TAB PO SCH (21:27)
[2018-09-03] VITALS (8 sets, daily range): BP systolic 95–190; BP diastolic 62–76
[2018-09-03 05:51] LABS: BASOPHILS % 0.4 % (0.0-1.0); EOSINOPHILS # (AUTO) 0.1 (0.0-0.4); EOSINOPHILS % 0.7 % (0.0-6.0); HEMATOCRIT 36.9 % (38.2-49.6); HEMOGLOBIN 11.9 g/dL (14.0-18.0); MEAN CORPUSCULAR HEMOGLOBIN 32.1 pg (28-32); MEAN CORPUSCULAR HGB CONC 32.2 g/dL (31-35); MEAN CORPUSCULAR VOLUME 99.5 fL (81-99); MONOCYTES # (AUTO) 0.9 (0.2-0.8); MONOCYTES % 8.9 % (4.4-11.3); NEUTROPHILS # (AUTO) 8.3 (2.1-6.9); NEUTROPHILS % 79.5 % (38.7-80.0); PLATELET COUNT 268 x10e3/uL (140-360); RED BLOOD COUNT 3.71 x10e6/uL (4.3-5.7); RED CELL DISTRIBUTION WIDTH 16.7 % (11.7-14.4)
[2018-09-03 06:14] LABS: ALBUMIN 3.4 g/dL (3.5-5.0); BILIRUBIN,DIRECT 0.8 mg/dL (0.0-0.5)
[2018-09-03 06:19] LABS: ALBUMIN 3.4 g/dL (3.5-5.0); ALBUMIN/GLOBULIN RATIO 1.2 (0.8-2.0); ANION GAP 15.9 mmol/L (8-16); CALCIUM 9.7 mg/dL (8.4-10.2); CREATININE, SERUM 2.05 mg/dL (0.72-1.25)
[2018-09-03 06:23] LABS: POTASSIUM 2.9 mmol/L (3.5-5.1)
[2018-09-03] MEDS ORDERED: POTASSIUM CHLORIDE 10MEQ EA PO STA (06:38)
[2018-09-03] MEDS ORDERED: MAGNESIUM SULFATE 2GM/50ML 25 ML IV ONE (06:45)
--- NOTE | 2018-09-03 06:50 | NUR ---
RECEIVED PATIENT RESTING IN BED. NO ACUTE DISTRESS NOTED. PATIENT DENIES PAIN OR DISCOMFORT. CALL LIGHT WITHIN REACH. BED IN THE LOWEST POSITION.
[2018-09-03] MEDS: BUDESONIDE/FORMOTEROL 160/4.5MCG INHALER INH SCH ×2 (07:00→19:00)
--- NOTE | 2018-09-03 07:06 | Diagnostic Imaging Report ---
EXAM: CHEST SINGLE (PORTABLE), AP Portable DATE: 09/03/2018 Time stamp on exam: 5:28 AM INDICATION: CHF COMPARISON: 09/02/2018 FINDINGS: LINES/TUBES: Cardiac device overlying both the right and left hemithorax with a single lead from the left and a dual lead from the right. LUNGS: Slight improvement in the edema. PLEURA: Small bilateral pleural effusions are minimally decreased. HEART AND MEDIASTINUM: Heart is enlarged. BONES AND SOFT TISSUES: No acute findings. IMPRESSION: Cardiomegaly with slight improvement in the edema and small bilateral pleural effusions Signed by: Dr. Issac Ghosh DO on 09/03/2018 7:03 AM
--- NOTE | 2018-09-03 07:20 | NUR ---
POTASSIUM IS 2.[address] ASHLEY AND INSTRUCTIONAL TECHNOLOGY FACILITATOR REGISTERED [facility] HAS GIVEN THE NEW ORDERS ,REPORT GIVEN TO THE ONCOMING NURSE
[2018-09-03] MEDS: INSULIN LISPRO 100 UNIT/1 ML 3ML VIAL SQ SCH ×4 (07:30→21:00)
[2018-09-03] MEDS: CARVEDILOL 3.125 MG TAB PO SCH ×2 (08:43→16:03)
[2018-09-03] MEDS: METOLAZONE 5 MG TAB PO SCH (08:43)
[2018-09-03] MEDS: ISOSORBIDE DINITRATE 20 MG TAB PO SCH ×3 (08:43→21:00)
--- NOTE | 2018-09-03 13:50 | NUR ---
DISCUSSED IN BARRIER ROUNDS, POT 2.9 NURSE IS REPLACING, ON 2 LITERS NASAL CANULA, AND ON BUMAX, DISCHARGE IN A COUPLE OF DAYS.
[2018-09-03 14:07] LABS: CREATININE,URINE RANDOM 18.69 mg/dL (63-166)
[2018-09-03 14:10] LABS: TOTAL PROTEIN, URINE < 6.8 mg/dL (1-14)
[2018-09-03] MEDS: AMIODARONE HCL 200 MG TAB PO SCH (16:03)
[2018-09-03] MEDS: WARFARIN SOD 2.5 MG TAB PO SCH (16:04)
[2018-09-03] MEDS ORDERED: MAGNESIUM SULF 1GRAM/DEXTROSE 100 ML IV ONE (17:00)
[2018-09-03] MEDS ORDERED: ONDANSETRON HCL 4 MG ORAL DISINTEGRATING TAB PO PRN (17:00)
[2018-09-03] MEDS ORDERED: POTASSIUM CHLORIDE 20MEQ/100ML 200 ML IV ONE (17:00)
[2018-09-03] MEDS ORDERED: SODIUM CHLORIDE 0.9% 500ML 500 ML ONE (17:04)
--- NOTE | 2018-09-03 19:14 | NUR ---
REPORT GIVEN TO ONCOMING NURSE, PATIENT IS RESTING IN RECLINER. RESPIRATIONS EVEN AND UNLABORED. NO ACUTE DISTRESS NOTED. CALL LIGHT WITHIN REACH. BED IN THE LOWEST POSITION.
--- NOTE | 2018-09-03 19:46 | NUR ---
RECEIVED PT SITTING ON THE CHAIR .RESPIRATIONS ARE EVEN AND UNLABORED BILATERAL LOWER EXTREMITIES WITH CLAUDIA KHANHE D/T SWELLING .PT IS GETTING POTASSIUM IV CALL LIGHT WITH IN REACH .DENIES PAIN .CONTINUE TO MONITOR
[2018-09-03] MEDS: BUMETANIDE INJ 0.25MG/ML 4ML VIAL IV SCH (21:00)
[2018-09-03] MEDS: PRAVASTATIN 20 MG TAB PO SCH (21:34)
[2018-09-04] VITALS (10 sets, daily range): BP systolic 92–122; BP diastolic 59–70
--- NOTE | 2018-09-04 05:24 | NUR ---
PT RESTED DURING THE NIGHT .DENIES PAIN .CALL LIGHT WITH IN REACH .CONTINUE TO MONITOR
[2018-09-04 06:32] LABS: BASOPHILS % 0.3 % (0.0-1.0); EOSINOPHILS # (AUTO) 0.1 (0.0-0.4); EOSINOPHILS % 0.9 % (0.0-6.0); HEMATOCRIT 35.7 % (38.2-49.6); HEMOGLOBIN 11.5 g/dL (14.0-18.0); LYMPHOCYTES % 9.4 % (18.0-39.1); MEAN CORPUSCULAR HEMOGLOBIN 32.3 pg (28-32); MEAN CORPUSCULAR HGB CONC 32.2 g/dL (31-35); MEAN CORPUSCULAR VOLUME 100.3 fL (81-99); MONOCYTES # (AUTO) 1.1 (0.2-0.8); MONOCYTES % 10.7 % (4.4-11.3); NEUTROPHILS # (AUTO) 8.3 (2.1-6.9); NEUTROPHILS % 78.2 % (38.7-80.0); PLATELET COUNT 252 x10e3/uL (140-360); RED BLOOD COUNT 3.56 x10e6/uL (4.3-5.7); RED CELL DISTRIBUTION WIDTH 16.7 % (11.7-14.4)
[2018-09-04 06:43] LABS: INR 2.93; PROTHROMBIN TIME 31.3 seconds (11.9-14.5)
[2018-09-04 06:49] LABS: ANION GAP 17.1 mmol/L (8-16); CALCIUM 9.6 mg/dL (8.4-10.2); CREATININE, SERUM 1.94 mg/dL (0.72-1.25); MAGNESIUM 2.1 MG/DL (1.3-2.1); POTASSIUM 3.1 mmol/L (3.5-5.1)
[2018-09-04 06:52] LABS: ALBUMIN 3.2 g/dL (3.5-5.0); ALBUMIN/GLOBULIN RATIO 1.1 (0.8-2.0); ANION GAP 16.1 mmol/L (8-16); CALCIUM 9.6 mg/dL (8.4-10.2); CREATININE, SERUM 1.97 mg/dL (0.72-1.25); POTASSIUM 3.1 mmol/L (3.5-5.1)
--- NOTE | 2018-09-04 06:52 | NUR ---
RECEIVED PATIENT RESTING IN RECLINER. NO ACUTE DISTRESS NOTED. NO S/S OF PAIN NOTED. CALL LIGHT WITHIN REACH. BED IN THE LOWEST POSITION.
--- NOTE | 2018-09-04 06:55 | Diagnostic Imaging Report ---
EXAMINATION: CHEST SINGLE (PORTABLE) INDICATION: ^chf ^[id number] ^[id number] COMPARISON: 09/03/2018 FINDINGS: AP view TUBES and LINES: Stable bilateral cardiac device is. LUNGS: Lungs are well inflated. Mild central vascular congestion and interstitial edema. Unchanged left lower lung field/retrocardiac opacification, probably layering effusion and atelectasis. PLEURA: Small bilateral pleural effusions, left greater than right. HEART AND MEDIASTINUM: The cardiac silhouette is enlarged. BONES AND SOFT TISSUES: No acute osseous lesion. Soft tissues are unremarkable. UPPER ABDOMEN: No free air under the diaphragm. IMPRESSION: No significant interval change from prior exam. Signed by: Dr. Johnny Avila MD on 09/04/2018 6:52 AM
--- NOTE | 2018-09-04 07:10 | NUR ---
REPORT GIVEN TO THE ON COMING NURSE
--- NOTE | 2018-09-04 07:22 | NUR ---
PAGED DR. ASHLEY FOR POTASSIUM LEVEL OF 3.1.
[2018-09-04] MEDS ORDERED: POTASSIUM CHLORIDE 20 MEQ TAB CR PO STA (07:28)
[2018-09-04] MEDS ORDERED: POTASSIUM CHLORIDE 20MEQ/100ML 200 ML IV ONE (07:30)
[2018-09-04] MEDS: INSULIN LISPRO 100 UNIT/1 ML 3ML VIAL SQ SCH ×4 (07:30→20:32)
[2018-09-04] MEDS ORDERED: SODIUM CHLORIDE 0.9% 500ML 500 ML ONE (07:52)
[2018-09-04] MEDS: BUMETANIDE INJ 0.25MG/ML 4ML VIAL IV SCH (08:21)
[2018-09-04] MEDS: CARVEDILOL 3.125 MG TAB PO SCH ×2 (08:21→16:23)
[2018-09-04] MEDS: METOLAZONE 5 MG TAB PO SCH (08:22)
[2018-09-04] MEDS: ISOSORBIDE DINITRATE 20 MG TAB PO SCH ×3 (08:22→20:38)
[2018-09-04] MEDS: WARFARIN SOD 2.5 MG TAB PO SCH (16:51)
[2018-09-04] MEDS: BUMETANIDE 1 MG TAB PO SCH (16:51)
--- NOTE | 2018-09-04 19:32 | NUR ---
REPORT GIVEN TO ONCOMING NURSE, PATIENT IS SLEEPING IN RECLINER, C-PAP IN PLACE. NO ACUTE DISTRESS NOTED, NO S/S OF PAIN OR DISCOMFORT NOTED. CALL LIGHT WITHIN REACH.
--- NOTE | 2018-09-04 19:32 | NUR ---
REPORT GIVEN TO ONCOMING NURSE, PATIENT IS RESTING IN RECLINER. NO ACUTE DISTRESS NOTED, NO S/S OF PAIN NOTED. CALL LIGHT WITHIN REACH. BED IN THE LOWEST POSITION. BED ALARM ON. Addendum: 09/04/18 at 1933 by AMBERLY DOLAN RN WRONG ENTRY.
[2018-09-04] MEDS: SIMVASTATIN 20 MG TAB PO SCH (20:38)
[2018-09-05] VITALS (8 sets, daily range): BP systolic 93–125; BP diastolic 60–125
[2018-09-05 06:12] LABS: ANION GAP 15.2 mmol/L (8-16); CALCIUM 10.2 mg/dL (8.4-10.2); CREATININE, SERUM 2.02 mg/dL (0.72-1.25); POTASSIUM 3.2 mmol/L (3.5-5.1)
[2018-09-05] MEDS: BUDESONIDE/FORMOTEROL 160/4.5MCG INHALER INH SCH ×2 (07:00→19:00)
--- NOTE | 2018-09-05 07:00 | NUR ---
received am report from rn. pt is awake sitting up in bed side chair, no s/s of distress. pt states that he sleeps in the chair at night because it makes it easier to breathe. CPAP machine is at the pt's bedside. call light is within reach
[2018-09-05] MEDS: INSULIN LISPRO 100 UNIT/1 ML 3ML VIAL SQ SCH ×4 (07:30→21:00)
[2018-09-05] MEDS: BUMETANIDE 1 MG TAB PO SCH ×2 (08:51→17:09)
[2018-09-05] MEDS: CARVEDILOL 3.125 MG TAB PO SCH ×2 (08:51→17:00)
[2018-09-05] MEDS: ISOSORBIDE DINITRATE 20 MG TAB PO SCH ×3 (08:52→21:00)
[2018-09-05] MEDS: METOLAZONE 5 MG TAB PO SCH (08:52)
[2018-09-05] MEDS: POTASSIUM CHLORIDE 20MEQ/100ML 200 ML IV ONE ×2 (10:19→11:03)
--- NOTE | 2018-09-05 11:04 | NUR ---
BEGAN KCL IV AT 1030 AND PT STARTED COMPLAINING AT 1100 THAT THE IV WAS BURNING, PT REFUSED TO RECEIVE THE REMAINING DOSE OF KCL THAT WAS ORDERED. DISCONNECTED IV LINE AND FLUSHED PIV.
[2018-09-05] MEDS: POTASSIUM CHLORIDE 20 MEQ TAB CR PO SCH ×2 (12:22→17:11)
[2018-09-05] MEDS: AMIODARONE HCL 200 MG TAB PO SCH (17:08)
[2018-09-05] MEDS: SPIRONOLACTONE 25 MG TAB PO SCH (17:08)
[2018-09-05] MEDS: WARFARIN SOD 2.5 MG TAB PO SCH (17:11)
--- NOTE | 2018-09-05 19:05 | NUR ---
Completed bedside report with morning nurse. Pt alert and orient to name. Sitting up in chair at bedside. Home CPAP on. 20g IV left FA in place. Denies pain at this time. Call amos within reach. Will continue to monitor.
[2018-09-05] MEDS: SIMVASTATIN 20 MG TAB PO SCH (21:18)
[2018-09-06] VITALS: BP 121/60
--- NOTE | 2018-09-06 02:06 | Progress Note ---
DATE: 09/05/2018 Medicine Progress Note. This is coverage for Dr. Khoi Metcalf. SUBJECTIVE: Mr. Brown was seen and examined at bedside. He is at 3 L/minute by nasal cannula on delivery. Oxygen continuing. He is eating well. He is wearing his CPAP at night well. He was able to walk to the restroom, but he is slow obviously from his baseline condition. REVIEW OF SYSTEMS: No headaches, no bleeding. OBJECTIVE: VITAL SIGNS: Afebrile, vital signs noted reviewed per the chart record. GENERAL: In no acute distress. Alert and calm. HEENT: Normocephalic, atraumatic. NECK: Supple. Throat midline. LUNGS: Bilateral air entry, decreased breath sounds, rare rhonchi. CARDIOVASCULAR: S1, S2. No murmurs, rubs, or gallops. ABDOMEN: Soft, nontender. EXTREMITIES: No clubbing, no cyanosis. There is 3+ edema. INTEGUMENT: No rash or purpura. LABORATORY DATA: 3.2 potassium, 51 BUN, 2.0 creatinine. Chest x-ray without new updates, but previous x-ray demonstrating mild vascular congestion and edema. IMPRESSION AND PLAN: 1. Fluid overload. 2. Chronic kidney disease. 3. Nonischemic cardiomyopathy about 25% per history. 4. Hypertension. 5. Diabetes. 6. Hyperlipidemia. 7. Atrial fibrillation. 8. Obstructive sleep apnea. 9. Reported chronic obstructive pulmonary disease. Continue diuretics as per Nephrology. Repeat a chest x-ray tomorrow. Potassium supplement for today. Continue anticoagulation. Bronchodilators. The patient has outside ripsaw matcher and expect continue complex cardiology care with him. MD NANCY Miller/MODL /[id number]
[2018-09-06 04:00] VITALS: BP 100/72
--- NOTE | 2018-09-06 06:23 | NUR ---
Pt sitting in chair quietly with eyes closed. Resp even and unlabored, 16. Call amos within reach.
[2018-09-06] MEDS: BUDESONIDE/FORMOTEROL 160/4.5MCG INHALER INH SCH (06:49)
[2018-09-06] MEDS: INSULIN LISPRO 100 UNIT/1 ML 3ML VIAL SQ SCH ×2 (07:30→12:01)
--- NOTE | 2018-09-06 07:40 | Diagnostic Imaging Report ---
EXAMINATION: CHEST SINGLE (PORTABLE) INDICATION: ^chf ^[id number] ^[id number] COMPARISON: 09/04/2018 FINDINGS: AP view TUBES and LINES: Right pacemaker device and left ICD device with at least 2 leads overlying the right ventricle limited evaluation. There is also possible two right atrial leads within the superior right atrium which is unchanged and may be in the right atrial appendage. LUNGS: Lungs are well inflated. Bibasilar atelectasis. Bilateral interstitial edema, unchanged. PLEURA: Small bilateral pleural effusion, stable. No pneumothorax. HEART AND MEDIASTINUM: Stable moderate enlargement of the cardiac silhouette. Mild atherosclerotic calcifications of the aortic arch. BONES AND SOFT TISSUES: No acute osseous lesion. Soft tissues are unremarkable. UPPER ABDOMEN: No free air under the diaphragm. IMPRESSION: Unchanged bilateral interstitial edema and small bilateral pleural effusions. Signed by: Dr. Becca Posada M.D. on 09/06/2018 7:36 AM
[2018-09-06 08:20] VITALS: BP 104/66
--- NOTE | 2018-09-06 08:20 | NUR ---
Pt received resting in bed. Alert and oriented x4 pt noted with skin tear to left foot. Pt with lower extremities edema +3 with redness noted to left leg. Oriented to staff and surroundings. Encouraged to press call amos if help needed. Pt verbalized understanding of teaching. Will monitor
[2018-09-06 08:21] VITALS: BP 104/66
[2018-09-06] MEDS: BUMETANIDE 1 MG TAB PO SCH (08:21)
[2018-09-06] MEDS: SPIRONOLACTONE 25 MG TAB PO SCH (08:21)
[2018-09-06] MEDS: CARVEDILOL 3.125 MG TAB PO SCH (08:21)
[2018-09-06] MEDS: ISOSORBIDE DINITRATE 20 MG TAB PO SCH (08:21)
[2018-09-06 11:28] VITALS: BP 100/71
[2018-09-06 13:18] LABS: INR 3.05; PROTHROMBIN TIME 32.3 seconds (11.9-14.5)
[2018-09-06 13:28] LABS: ALBUMIN 3.4 g/dL (3.5-5.0); ANION GAP 16.4 mmol/L (8-16); CALCIUM 10.3 mg/dL (8.4-10.2); CREATININE, SERUM 2.1 mg/dL (0.72-1.25); POTASSIUM 3.4 mmol/L (3.5-5.1)
[2018-09-06] MEDS ORDERED: SPIRONOLACTONE25 MG PO (14:02)
[2018-09-06] MEDS ORDERED: WARFARIN SODIU2.5 MG PO (14:02)
[2018-09-06] MEDS ORDERED: GLUCOTROL XL2.5 MG PO (14:02)
[2018-09-06] MEDS ORDERED: K DUR10 MEQ PO (14:02)
[2018-09-06] MEDS ORDERED: BUMETANIDE1 MG PO (14:02)
--- NOTE | 2018-09-06 14:52 | NUR ---
tx summ [id number]
--- NOTE | 2018-09-06 14:55 | NUR ---
Pt given discharge instructions regarding meds, diet, activities, daily weight, s/s to report, and follow up appointment. Pt verbalized understanding of teaching. Will follow up
--- NOTE | 2018-09-06 15:10 | NUR ---
Pt left unit with all belongings
--- NOTE | 2018-09-07 00:25 | Discharge Summary ---
PRIMARY CARE DOCTOR: Dr. Garcia at [facility]. HOSPITAL PHYSICIAN: Dr. Khoi Metcalf. PRIMARY DIAGNOSES: 1. Fluid overload, [id number] systolic heart failure, EF less than 20%. 2. Moderate aortic stenosis. DISCHARGE DIAGNOSES: 1. Fluid overload, [id number] systolic heart failure, EF less than 20%. 2. Moderate aortic stenosis. HOSPITAL COURSE: Mr. Brown is a pleasant 73-year-old gentleman, who was developing massive leg edema and shortness of breath. BNP was in 1600 range. Chest x-ray demonstrates pulmonary edema and some pleural effusion. The patient was on anticoagulation of course due to atrial fibrillation. The patient was hospitalized showing echocardiogram that was grossly stable from his previous. The patient received escalation diuretics noting his kidney dysfunction and creatinine seemed to be between 1.75 to 2.10 during this hospitalization. Chest x-ray and legs showed significant improvement, and the patient lost 28 pounds during this hospitalization. The patient's edema went down to 3+, but a more manageable 3+. Eventually, kidney doctors felt the patient is better for oral diuretics. The patient was allowed to mobilize and he was allowed for outpatient followup and discharge. The patient already has home oxygen. The patient already has assistive devices for mobilization. Bumex dose was increased from 1 twice a day to 2 twice a day. Aldactone was increased from 25 once a day to twice a day. Warfarin was minimally down adjusted, but for the most part was within range to minimally high. He already has a set of doctors that he will be following with. FOLLOW UP: Follow up with his pulmonary physical therapist, Dr. 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 DIET AT DISCHARGE: Renal /cardiac and diabetic diet. ACTIVITY: As tolerated with assist device. MEDICATIONS AT DISCHARGE: Please see discharge medication list. Greater than 30 minutes spent in care and coordination at the day of discharge. The patient had a chance to have acute questions answered. MD NANCY Miller/MODL /[id number]
[2018-09-07] MEDS ORDERED: WARFARIN SOD 3 MG TAB PO SCH (17:00)
== END 2018-09-06 15:00 | disposition home or self-care (01) | DRG 291 ==
LOC: ER 11:00 → ERHOLD 14:07 → MED/SURG3 14:42
PROVIDERS: ADMIT Internal Medicine; ATTEND Internal Medicine
DX: I13.0 Hypertensive heart and chronic kidney disease with heart failure and stage 1 through stage 4 chronic kidney disease, or unspecified chronic kidney disease (principal); I50.23 Acute on chronic systolic (congestive) heart failure; J96.10 Chronic respiratory failure, unspecified whether with hypoxia or hypercapnia; N17.9 Acute kidney failure, unspecified; I35.0 Nonrheumatic aortic (valve) stenosis; J44.9 Chronic obstructive pulmonary disease, unspecified; I48.91 Unspecified atrial fibrillation; E78.5 Hyperlipidemia, unspecified; G47.33 Obstructive sleep apnea (adult) (pediatric); N18.3 Chronic kidney disease, stage 3 (moderate); N40.0 Benign prostatic hyperplasia without lower urinary tract symptoms; E66.01 Morbid (severe) obesity due to excess calories; E11.22 Type 2 diabetes mellitus with diabetic chronic kidney disease; Z95.810 Presence of automatic (implantable) cardiac defibrillator; Z82.49 Family history of ischemic heart disease and other diseases of the circulatory system; Z87.891 Personal history of nicotine dependence; Z68.35 Body mass index [BMI] 35.0-35.9, adult; R53.81 Other malaise; E87.6 Hypokalemia; E83.42 Hypomagnesemia; Z68.37 Body mass index [BMI] 37.0-37.9, adult
CPT/HCPCS: 36415; 71045; 76770; 80048; 80053; 80061; 80076; 81001; 82550; 82553; 82570; 82948; 83735; 83880; 84156; 84484; 85025; 85610; 85730; 93005; 93306; 97139; 99284; J1940; J3475; J3480; J7040

== ENCOUNTER 2019-08-17 23:50 | Inpatient (IN) | payer MEDICARE, OTHER ==
[~2019-08-17] VITALS: Ht 170.2 cm; Wt 84.4 kg
[~2019-08-17 23:50] MED LIST: AMIODARONE HCL200 MG PO; BUMETANIDE1 MG PO; CARVEDILOL3.125 MG PO; FISH OIL 1,2001 EAC1 PO; FLOMAX0.4 MG PO; GLUCOTROL XL2.5 MG PO; K DUR10 MEQ PO; LISINOPRIL2.5 MG PO; METFORMIN HCL500 MG PO; PRAVASTATIN SOD40 MG PO; PROAIR HFA INH8.5 GM INH; SPIRONOLACTONE25 MG PO; SYMBICORT 16010.2 GM INH; VITAMIN B-121000 MCG PO; VITAMIN D1000 UNI1 PO; WARFARIN SODIU2.5 MG PO
--- OUTSIDE RECORDS SUMMARY | 2019-08-17 23:53 | XMS REPORT | Continuity of Care Document ---
Author Author [facility] Organization [facility] Address 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 Allergies, Adverse Reactions, Alerts This patient has no known allergies or adverse reactions. Medications Ordered Medication Name Filled Medication Name Start Date Stop Da te Current Medication? Ordering Clinician Indication Dosage Frequency Signature (SIG) Comments Components Source Bumetanide 1 Mg Tablet Bumetanide 1 Mg Tablet 2018-09-06 00:00:00 Yes Alejandra Coronado Md 2 Twice A Day [facility] Glipizide (Glucotrol Xl*) 2.5 Mg Tab.er.24 Glipizide ( Glucotrol Xl*) 2.5 Mg Tab.er.24 2018-09-06 00:00:00 Yes Alejandra Coronado Md 2.5 Daily [facility] Potassium Chloride (K Dur*) 10 Meq Tabcr Potassium Chl oride (K Dur*) 10 Meq Tabcr 2018-09-06 00:00:00 Yes Alejandra Coronado Md 10 Daily [facility] Spironolactone 25 Mg Tablet Spironolactone 25 Mg Tablet 2018-09-06 00:00:00 Yes Alejandra Coronado Md 25 Twice A Day [facility] Warfarin Sodium 2.5 Mg Tablet Warfarin Sodium 2.5 Mg Tablet 2018 00:00:00 Yes Alejandra Coronado Md 2.5 Use As Directed [facility] Albuterol Sulfate (Proair Hfa Inhaler*) 8.5 Gm Inh Alb uterol Sulfate (Proair Hfa Inhaler*) 8.5 Gm Inh Yes As Needed as needed for Shortness Of Breath [facility] Amiodarone Hcl 200 Mg Tablet Amiodarone Hcl 200 Mg Tablet Y es 100 Every Other Day [facility] Budesonide/Formoterol Fumarate (Symbicor t 160-4.5 Mcg Inhaler) 10.2 Gm Hfa.aer.ad Budesonide/Formoterol Fumarate (Symbicor t 160-4.5 Mcg Inhaler) 10.2 Gm Hfa.aer.ad Yes 1 Twice A Day [facility] Carvedilol 3.125 Mg Tablet Carvedilol 3.125 Mg Tablet Yes 6.25 Twice A Day [facility] Cholecalciferol (Vitamin D3) (Vitamin D) 1,000 Unit [place]let Cholecalciferol (Vitamin D3) (Vitamin D) 1,000 Unit Tablet Yes 5000 Daily [facility] Cyanocobalamin (Vitamin B-12) 1,000 Mcg Tab Cyanocobal pascual (Vitamin B-12) 1,000 Mcg Tab Yes 1000 Daily [facility] Lisinopril 2.5 Mg Tablet Lisinopril 2.5 Mg Tablet Yes 2.5 Daily [facility] [place]-3 Fatty Acids/Fish Oil (Fish Oil 1,200 Mg Softge l) 1 Each Capsule [place]-3 Fatty Acids/Fish Oil (Fish Oil 1,200 Mg Softgel) 1 Each Capsule Yes 1200 Daily [facility] Pravastatin Sodium 40 Mg Tablet Pravastatin Sodium 40 Mg Tablet Yes 40 Daily [facility] Tamsulosin Hcl (Flomax*) 0.4 Mg Cap Tamsulosin Hcl (Flomax*) 0.4 Mg C ap Yes .4 Daily [facility] Warfarin Sodium 2.5 Mg Tablet Warfarin Sodium 2.5 Mg Tablet Yes 5 Daily [facility] Bumetanide 1 Mg Tablet, 1 Mg Oral Bumetanide 1 Mg Tablet, 1 Mg O ral 2018-09-06 00:00:00 No 1 Daily [facility] Metformin Hcl 500 Mg Tablet, 1000 Mg Oral Metformin Hc l 500 Mg Tablet, 1000 Mg Oral 2018-09-06 00:00:00 No 1000 Twice A Day [facility] Spironolactone 25 Mg Tablet, 25 Mg Oral Spironolactone 25 Mg Tablet, 25 Mg Oral 2018-09-06 00:00:00 No 25 Daily [facility] Procedures Procedure Date / Time Performed Performing Clinician Sour e Ultrasound, renal 2018-09-01 00:00:00 MARVA ASHLEY [facility] Encounters Start Date/Time End Date/Time Encounter Type Admission Type [facility] Care Department Encounter ID Source 2018-08-30 14:07:00 2018-08-30 14:07:00 Admitted Inpatient 1 MICHELLE MONTIEL [facility] [id number] [facility] Results Test Description Test Time Test Comments Results Result Comments Source Sodium Level 2018-09-06 13:29:00 Test Item Sodium Level (test code = 2951-2) 138 136-145 [facility] Hukns1776-37-18 13:29:00* Test Item Value Reference Range Interpretation Comments Potassium Level (test code = 2823-3) 3.4 3.5-5.1 L [facility] HospitalChloride Vromb6551-87-62 13:29:00* Test Item Value Reference Range Interpretation Comments Chloride Level (test code = 2075-0) 87 98-107 L [facility] HospitalCarbon Dioxide Voioa1575-06-73 13:29:00* Test Item Value Reference Range Interpretation Comments Carbon Dioxide Level (test code = 2028-9) 38 22-29 H [facility] HospitalAnion Oad8182-82-12 13:29:00* Test Item Value Reference Range Interpretation Comments Anion Gap (test code = 96990-0) 16.4 8-16 H [facility] HospitalBlood Urea Nzddffwe6102-11-35 13:29:00* Test Item Value Reference Range Interpretation Comments Blood Urea Nitrogen (test code = 3094-0) 60 7-26 H [facility] HospitalCreatinine2019-06-22 13:29:00* Test Item Value Reference Range Interpretation Comments Creatinine (test code = 2160-0) 2.10 0.72-1.25 H [facility] HospitalBUN/Creatinine Uptne4970-11-82 13:29:00* Test Item Value Reference Range Interpretation Comments BUN/Creatinine Ratio (test code = 3097-3) 29 6-25 H [facility] HospitalEstimat Glomerular Filtration Rate 2018-09-06 13:29:00* Test Item Value Reference Range Interpretation Comments Estimat Glomerular Filtration Rate (test code = 852301143) 31 >60 L Ranges were taken from the National Kidney Disease Education Program and the [facility] Kid[facility] Foundation literature.Reference ranges:60 or greater: Yjcrcx19-89 ( for 3 consecutive months): Chronic kidney disease 15 or less: Kidney failureQuail Creek Surgical HospitalGlucose Ppdwx4200-86-68 13:29:00* Test Item Value Reference Range Interpretation Comments Glucose Level (test code = KTE1346) 218 74-118 H [facility] HospitalCalcium Ojvsc3609-76-46 13:29:00* Test Item Value Reference Range Interpretation Comments Calcium Level (test code = 93969-5) 10.3 8.4-10.2 H [facility] HospitalTotal Qilvjzwaw7583-35-61 13:29:00* Test Item Value Reference Range Interpretation Comments Total Bilirubin (test code = 1975-2) 1.3 0.2-1.2 H [facility] HospitalAspartate Amino Transf (AST/SGOT) 2018-09-06 13:29:00* Test Item Value Reference Range Interpretation Comments Aspartate Amino Transf (AST/SGOT) (test code = Aspartate Amino Transf (AST/SGOT)) 32 5-34 [facility] HospitalAlanine Aminotransferase (ALT/SGPT) 2018-09-06 13:29:00* Test Item Value Reference Range Interpretation Comments Alanine Aminotransferase (ALT/SGPT) (test code = 1742-6) 136 0-55 H [facility] HospitalTotal Uhwgite0450-84-59 13:29:00* Test Item Value Reference Range Interpretation Comments Total Protein (test code = 2885-2) 6.7 6.5-8.1 [facility] HospitalAlbumin2019-06-22 13:29:00* Test Item Value Reference Range Interpretation Comments Albumin (test code = 1751-7) 3.4 3.5-5.0 L [facility] HospitalGlobulin2019-06-22 13:29:00* Test Item Value Reference Range Interpretation Comments Globulin (test code = 63889-1) 3.3 2.3-3.5 [facility] HospitalAlbumin/Globulin Vwtud3943-63-82 13:29:00 * Test Item Value Reference Range Interpretation Comments Albumin/Globulin Ratio (test code = 1759-0) 1.0 0.8-2.0 [facility] HospitalAlkaline Pviccitbsss5021-02-90 13:29:00* Test Item Value Reference Range Interpretation Comments Alkaline Phosphatase (test code = 6768-6) 76 40-150 [facility] HospitalProthrombin Kugb4400-77-56 13:20:00* Test Item Value Reference Range Interpretation Comments Prothrombin Time (test code = 5902-2) 32.3 11.9-14.5 H [facility] HospitalProthromb Time International Ratio 2018-09-06 13:20:00* Test Item Value Reference Range Interpretation Comments Prothromb Time International Ratio (test code = 6301-6) 3.05 Oral Anticoagulant Therapy INR Values:1. Low Intensity Therapy 1.5 - 2.02 . Moderate Intensity Therapy 2.0 - 3.03. High Intensity Therapy(1) 2.5 - 3. 54. High Intensity Therapy(2) 3.0 - 4.05. Panic Value INR > 5.0 [facility] HospitalBedside Sbcthvv2639-51-44 11:36:00* Test Item Value Reference Range Interpretation Comments Bedside Glucose (test code = 85614-4) 161 70-120 H Meter ID: [id number] [facility]2018-09-06 07:34:00 [facility] [address] [address] Patient Name: BREONNA PIMENTEL MR #: [id number] : 1945 Age/Sex: 73/M Req #: [id number] Adm Physician: MICHELLE MONTIEL MD Ordered by: ALEJANDRA CORONADO MD Report #: [id number] Location: MED/SURG3 Room/Bed: [facility] Procedure: [id number] DX/CHEST SINGLE (PORTABLE) Exam Date: 09/06/18 Exam Time: 614 REPORT STATUS: Signed EXAMINATION: CHEST SINGLE (PORTABLE) INDICATION: chf [id number] COMPARISON: 09/04/2018 FINDINGS: AP view TUBES and LINES: Right pacemaker device and left ICD device with at least 2 leads overlying the right ventricle limited evaluation. There is also possible two right atrial leads within the superior right atrium which is unchanged and may be in the right atrial appendage. LUNGS: Lungs are well inflated. Bibasilar atelectasis. Bilateral interstitial edema, unchanged. PLEURA: Small bilateral pleural effusion, stable. No pneumothorax. HEART AND ME DIASTINUM: Stable moderate enlargement of the cardiac silhouette. Mild ather osclerotic calcifications of the aortic arch. BONES AND SOFT TISSUES: No a cute osseous lesion. Soft tissues are unremarkable. UPPER ABDOMEN: No fr ee air under the diaphragm. IMPRESSION: Unchanged bilateral intersti tial edema and small bilateral pleural effusions. Signed by: Dr. Zabrina Posada M.D. on 09/06/2018 7:36 AM Dictated By: JAYASHREE MILLER MD 073 [id number] Transcribed By: NAHOMI on 09/06/18 0736 COPY TO: ALEJANDRA CORONADO MD, ABIM B-Type Natriuretic Bqzyniu2135-67-79 07:09:00* Test Item Value Reference Range Interpretation Comments B-Type Natriuretic Peptide (test code = 62800-5) 1896.0 0-100 H [facility] HospitalMagnesium Kktyy5312-77-63 07:03:00* Test Item Value Reference Range Interpretation Comments Magnesium Level (test code = 43346-4) 2.1 1.3-2.1 [facility]2018-09-04 06:49:[address] [address] Patient Name: BREONNA PIMENTEL MR #: [id number] : 1945 Age/Sex: 73/M Req #: [id number] Adm Physician: MICHELLE MONTIEL MD Ordered by: MICHELLE MONTIEL MD Report #: [id number] Location: MED/SURG3 Room/Bed: [facility] Procedure: [id number] D X/CHEST SINGLE (PORTABLE) Exam Date: 09/04/18 Exam T garima: 0540 REPORT STATUS: Signed EXAMINATION: CHEST SINGLE (PORTABLE) INDICATION: chf [id number] COMPARISON: 09/03/2018 FINDINGS: AP view TUB ES and LINES: Stable bilateral cardiac device is. LUNGS: Lungs are well i nflated. Mild central vascular congestion and interstitial edema. Unchanged left lower lung field/retrocardiac opacification, probably layering effusion and atelectasis. PLEURA: Small bilateral pleural effusions, left greater t huang right. HEART AND MEDIASTINUM: The cardiac silhouette is enlarged. BONES AND SOFT TISSUES: No acute osseous lesion. Soft tissues are unrem arkable. UPPER ABDOMEN: No free air under the diaphragm. IMPRESSIO N: No significant interval change from prior exam. Signed by: Dr. Amilcar Dowling MD on 09/04/2018 6:52 AM Dictated By: JOHNNY DOWLING MD Electr onically Signed By: JOHNNY DOWLING MD on 09/04/18651 Transcribed By: NAHOMI mancilla 09/04/18651 COPY TO: MICHELLE MONTILE MD White Blood Count 2018-09-04 06:35:00* Test Item Value Reference Range Interpretation Comments White Blood Count (test code = 6690-2) 10.58 4.8-10.8 [facility] HospitalRed Blood Nlxlx6588-43-77 06:35:00* Test Item Value Reference Range Interpretation Comments Red Blood Count (test code = 789-8) 3.56 4.3-5.7 L [facility] HospitalHemoglobin2019-06-20 06:35:00* Test Item Value Reference Range Interpretation Comments Hemoglobin (test code = 33391-0) 11.5 14.0-18.0 L [facility] HospitalHematocrit2019-06-20 06:35:00* Test Item Value Reference Range Interpretation Comments Hematocrit (test code = 4544-3) 35.7 38.2-49.6 L [facility] HospitalMean Corpuscular Eleaxi7670-48-57 06:35:00* Test Item Value Reference Range Interpretation Comments Mean Corpuscular Volume (test code = 787-2) 100.3 81-99 H [facility] HospitalMean Corpuscular Bnivcchpiq3670-21-95 06:35:00* Test Item Value Reference Range Interpretation Comments Mean Corpuscular Hemoglobin (test code = 785-6) 32.3 28-32 H [facility] HospitalMean Corpuscular Hemoglobin Concent 2018-09-04 06:35:00* Test Item Value Reference Range Interpretation Comments Mean Corpuscular Hemoglobin Concent (test code = 786-4) 32.2 31-35 [facility] HospitalRed Cell Distribution Urllc1724-86-33 06:35:00* Test Item Value Reference Range Interpretation Comments Red Cell Distribution Width (test code = 95165-2) 16.7 11.7 -14.4 H [facility] HospitalPlatelet Jxxhb7842-51-47 06:35:00* Test Item Value Reference Range Interpretation Comments Platelet Count (test code = 777-3) 252 140-360 [facility] HospitalNeutrophils (%) (Auto)2018-09-04 06:35:00 * Test Item Value Reference Range Interpretation Comments Neutrophils (%) (Auto) (test code = 96275-9) 78.2 38.7-80.0 [facility] HospitalLymphocytes (%) (Auto)2018-09-04 06:35:00 * Test Item Value Reference Range Interpretation Comments Lymphocytes (%) (Auto) (test code = 736-9) 9.4 18.0-39.1 L [facility] HospitalMonocytes (%) (Auto)2018-09-04 06:35:00* Test Item Value Reference Range Interpretation Comments Monocytes (%) (Auto) (test code = 5905-5) 10.7 4.4-11.3 [facility] HospitalEosinophils (%) (Auto)2018-09-04 06:35:00 * Test Item Value Reference Range Interpretation Comments Eosinophils (%) (Auto) (test code = 713-8) 0.9 0.0-6.0 [facility] HospitalBasophils (%) (Auto)2018-09-04 06:35:00* Test Item Value Reference Range Interpretation Comments Basophils (%) (Auto) (test code = 706-2) 0.3 0.0-1.0 [facility] HospitalIM GRANULOCYTES %2018-09-04 06:35:00* Test Item Value Reference Range Interpretation Comments IM GRANULOCYTES % (test code = IM GRANULOCYTES %) 0.5 0.0- 1.0 [facility] HospitalNeutrophils # (Auto)2018-09-04 06:35:00* Test Item Value Reference Range Interpretation Comments Neutrophils # (Auto) (test code = 751-8) 8.3 2.1-6.9 H [facility] HospitalLymphocytes # (Auto)2018-09-04 06:35:00* Test Item Value Reference Range Interpretation Comments Lymphocytes # (Auto) (test code = 53475-2) 1.0 1.0-3.2 [facility] HospitalMonocytes # (Auto)2018-09-04 06:35:00* Test Item Value Reference Range Interpretation Comments Monocytes # (Auto) (test code = 742-7) 1.1 0.2-0.8 H [facility] HospitalEosinophils # (Auto)2018-09-04 06:35:00* Test Item Value Reference Range Interpretation Comments Eosinophils # (Auto) (test code = 711-2) 0.1 0.0-0.4 [facility] HospitalBasophils # (Auto)2018-09-04 06:35:00* Test Item Value Reference Range Interpretation Comments Basophils # (Auto) (test code = 704-7) 0.0 0.0-0.1 [facility] HospitalAbsolute Immature Granulocyte (auto 2018-09-04 06:35:00* Test Item Value Reference Range Interpretation Comments Absolute Immature Granulocyte (auto (bishop t code = Absolute Immature Granulocyte (auto) 0.05 0-0.1 [facility] HospitalUrine Random Total Hreasfi3664-84-42 14:10:00* Test Item Value Reference Range Interpretation Comments Urine Random Total Protein (test code = 2888-6) < 6.8 1-14 [facility] HospitalUrine Gudrpanzvb0123-55-47 14:10:00* Test Item Value Reference Range Interpretation Comments Urine Creatinine (test code = 2161-8) 18.69 63-166 L [facility] HospitalUrine Protein/Creatinine Onlir7701-73-88 14:10:00* Test Item Value Reference Range Interpretation Comments Urine Protein/Creatinine Ratio (test code = 50521-9) 0.00 [facility] HospitalCHEST SINGLE (PORTABLE)2018-09-03 07:00:00 [address] [address] Patient Name: BREONNA PIMENTEL MR #: [id number] : 1945 Age/Sex: 73/M Req #: [id number] Adm Physician: MICHELLE MONTIEL MD Ordered by: MICHELLE MONTIEL MD Report #: [id number] Location: MED/SURG3 Room/Bed: [facility] Procedure: [id number] D X/CHEST SINGLE (PORTABLE) Exam Date: 09/03/18 Exam T garima: 0550 REPORT STATUS: Signed EXAM: CHEST SINGLE (PORTABLE), AP Portable DATE: 09/03/2018 Time stamp on exam: 5:28 AM INDICATION: CHF COMPARISON: 09/02/2018 FINDINGS: LINES/TUBES: Cardiac device overlying both the right and left hemithorax with a single lead from the left and a dual lead from the right. LUNGS: Slight improvement in the edema. PLEURA: Small bilateral pleural effusions are minimally decre ased. HEART AND MEDIASTINUM: Heart is enlarged. BONES AND SOFT TISSUES : No acute findings. IMPRESSION: Cardiomegaly with slight improvement in the edema and small bilateral pleural effusions Signed by: Dr. Jeff Mccormick DO on 09/03/2018 7:03 AM Dictated By: BECKY MCCORMICK DO Elec tronically Signed By: BECKY MCCORMICK DO on 09/03/18702 Transcribed By: NAHOMI on 09/03/18702 COPY TO: MICHELLE MONTIEL MD Direct Bilirubin 2018-09-03 06:16:00* Test Item Value Reference Range Interpretation Comments Direct Bilirubin (test code = 41653-6) 0.8 0.0-0.5 H [facility]2018-09-02 06:56:00 [address] [address] Patient Name: BREONNA PIMENTEL MR #: [id number] : 1945 Age/Sex: 73/M Req #: [id number] Adm Physician: MICHELLE MONTIEL MD Ordered by: MICHELLE MONTIEL MD Report #: [id number] Location: MED/SURG3 Room/Bed: [facility] Procedure: [id number] D X/CHEST SINGLE (PORTABLE) Exam Date: 09/02/18 Exam T garima: 0636 REPORT STATUS: Signed EXAMINATION: CHEST SINGLE (PORTABLE) INDICATION: CHF [id number] COMPARISON: 09/01/2018 FINDINGS: AP view TUB ES and LINES: Stable bilateral cardiac device is. LUNGS and pleura: Pulmo nary vascular congestion, mild to moderate interstitial edema, and bilateral p leural effusions. HEART AND MEDIASTINUM: The cardiac silhoue tte is enlarged. BONES AND SOFT TISSUES: No acute osseous lesion. Sof t tissues are unremarkable. UPPER ABDOMEN: No free air under the diaphrag m. IMPRESSION: No significant interval change from prior exam. Signed by: Dr. Johnny Dowling MD on 09/02/2018 6:57 AM Dictated By: AMILCAR DOWLING MD [place] scribed By: NAHOMI on 09/02/1857 COPY TO: MICHELLE MONTIEL MD RENAL RETROPERITONEAL ZOTK0000-66-59 17:33:00 [address] [address] Patient Name: BREONNA PIMENTEL MR #: [id number] : 1945 Age/Sex: 73/M Req #: [id number] Adm Physician: MICHELLE MONTIEL MD Ordered by: MARVA ASHLEY MD, MD Report #: [id number] Location: [facility] Room/Bed: [facility] Procedure: [id number] US/US RENAL RETROPERITONEAL COMP Exam Date: 09/01/18 Exam Time: 1631 REPORT STATUS: Sig bacilio EXAM: Renal Ultrasound INDICATION: asher no doppler COMPARISO N: None TECHNIQUE: Transverse and longitudinal images of the kidneys and blad livan were obtained. FINDINGS: Right Kidney: Size: 10.2 x 4.6 x 4.6 cm Echogenicity: Normal Parenchymal thickness: Nor mal Collecting system: No hydronephrosis Stones: None Cyst /Mass: None Left Kidney: Size: 9.9 x 6.4 x 4.3 cm Echogenici ty: Normal Parenchymal thickness: Normal Collecting system: No hydronephrosis Stones: None Cyst/Mass: 1.5 x 1.7 x 2.0 cm simple cyst in the interpolar region. Bladder: Normal Bilateral ureteral jets are not visualized. Moderate ascites. IMPRESSION: 1. 2.0 cm simple left renal cyst. Otherwise, unremarkable kidneys. 2. Moderate ascites. Signed by: Dr. Martín Figueroa M.D. on 09/01/2018 5:34 PM Dictated By: MARTÍN FIGUEROA MD 33 Transcribed By: NAHOMI on 09/01/181733 COPY TO: MARVA ASHLEY [facility] (PORTABLE) 2018-09-01 06:47:00 [place] [id number] Patient Name: BREONNA PIMENTEL MR #: [id number] : 1945 Age/Sex: 73/M Req #: [id number] Adm Physician: MICHELLE MONTIEL MD Ordered by: MICHELLE MONTIEL MD Report #: [id number] Location: MED/SURG3 Room/Bed: [facility] Procedure: [id number] D X/CHEST SINGLE (PORTABLE) Exam Date: 09/01/18 Exam T garima: 0620 REPORT STATUS: Signed EXAMINATION: CHEST SINGLE (PORTABLE) COMPARISON: 08/30/2018. INDIC ATION: Congestive heart failure exacerbation. DISCUSSION: HEART AND MEDIASTINUM: The cardiac silhouette is moderately enlarged. Redemonstration of 2 pacemaker battery packs, one each side of the chest. LUNGS: Bibasila r airspace opacities either atelectasis or pneumonia.. Pulmonary venous conges tion is unchanged. PLEURA: Bilateral small pleural effusions. No pneumotho rax BONES AND SOFT TISSUES: No focal osseous lesion. The soft tissues are normal. IMPRESSION: Stable exam. Pulmonary venous congestion is uncha nged. Signed by: Dr. Zaynab Driver M.D. on 09/01/2018 6:48 AM Dictated By: SHIVA DRIVER MD, MD 7 Transcribed By: NAHOMI on 09/01/18647 COPY TO: MICHELLE BHATTI MD Triglycerides Qhedg8655-59-63 07:33:00* Test Item Value Reference Range Interpretation Comments Triglycerides Level (test code = 2571-8) 49 0-149 [facility] HospitalCholesterol Gihig1776-62-56 07:33:00* Test Item Value Reference Range Interpretation Comments Cholesterol Level (test code = 2093-3) 70 0-199 Less than 200 mg/dL Low Gciz067 - 239 mg/dL Borderline Hxcf895 m g/dl and greater High Risk [facility] HospitalLDL Njsjktfvuih7233-67-31 07:33:00* Test Item Value Reference Range Interpretation Comments LDL Cholesterol (test code = 2089-1) 26 60-130 L [facility] HospitalHDL Mamkejvmukv1110-71-89 07:33:00* Test Item Value Reference Range Interpretation Comments HDL Cholesterol (test code = 2085-9) 34 40-60 L [facility] HospitalCholesterol/HDL Pzrsh2497-06-88 07:33:00 * Test Item Value Reference Range Interpretation Comments Cholesterol/HDL Ratio (test code = 9830-1) 2.1 3.9-4.7 L [facility] HospitalTroponin L9331-28-19 07:17:00* Test Item Value Reference Range Interpretation Comments Troponin I (test code = WPA9531) 0.024 0-0.300 [facility] HospitalCHEST SINGLE (PORTABLE)2018-08-31 06:19:00 [place] [address] Patient Name: BREONNA PIMENTEL MR #: [id number] : 1945 Age/Sex: 73/M Req #: [id number] Adm Physician: MICHELLE MONTIEL MD Ordered by: MICHELLE MONTIEL MD Report #: [id number] Location: MED/SURG3 Room/Bed: [facility] Procedure: D X/CHEST SINGLE (PORTABLE) Exam Date: 08/31/18 Exam T garima: 0530 REPORT STATUS: Signed EXAMINATION: CHEST SINGLE (PORTABLE) COMPARISON: 08/30/2018. INDIC ATION: Congestive heart failure exacerbation. DISCUSSION: HEART AND MEDIASTINUM: The cardiac silhouette is moderately enlarged. Redemonstration of 2 pacemaker battery packs, one each side of the chest. LUNGS: Bibasila r airspace opacities either atelectasis or pneumonia.. Pulmonary venous conges tion somewhat decreased since the prior examination. PLEURA: Bilateral sma ll pleural effusions. No pneumothorax BONES AND SOFT TISSUES: No focal oss eous lesion. The soft tissues are normal. IMPRESSION: Pulmonary venou s congestion somewhat decreased since the prior examination. Signed by: Dr. Zaynab Driver M.D. on 08/31/2018 6:21 AM Dictated By: SHIVA MCARTHUR MD, MD 0 [place] scribed By: NAHOMI on 08/31/18620 COPY TO: MICHELLE MONTIEL MD Urine ZAV9566-57-05 15:36:00* Test Item Value Reference Range Interpretation Comments Urine WBC (test code = 5821-4) 0-5 0-5 [facility] HospitalUrine HTY1255-76-35 15:36:00* Test Item Value Reference Range Interpretation Comments Urine RBC (test code = 04822-8) 0-5 0-5 [facility] [id number] 15:36:00* Test Item Value Reference Range Interpretation Comments Urine Bacteria (test code = 67522-9) RARE NONE [facility] Epithelial [id number] 15:36:00 * Test Item Value Reference Range Interpretation Comments Urine Epithelial Cells (test code = 42478-5) RARE NONE [facility] [id number] 15:26:00* Test Item Value Reference Range Interpretation Comments Urine Color (test code = 5778-6) YELLOW YELLOW [facility] [id number] 15:26:00* Test Item Value Reference Range Interpretation Comments Urine Clarity (test code = 38320-4) CLEAR CLEAR [facility] Specific [id number] 15:26:00 * Test Item Value Reference Range Interpretation Comments Urine Specific [place] (test code = 5811-5) 1.020 1.010-1.02 5 [facility] [id number] 15:26:00* Test Item Value Reference Range Interpretation Comments Urine pH (test code = 29131-6) 5 5-7 [facility] Leukocyte [id number] 15:26:00* Test Item Value Reference Range Interpretation Comments Urine Leukocyte Esterase (test code = 30768-7) NEGATIVE NEGATIV E [facility] [id number] 15:26:00* Test Item Value Reference Range Interpretation Comments Urine Nitrite (test code = 39630-6) NEGATIVE NEGATIVE [facility] [id number] 15:26:00* Test Item Value Reference Range Interpretation Comments Urine Protein (test code = 13100-3) TRACE NEGATIVE H [facility] Glucose (UA)2018-08-30 15:26:00* Test Item Value Reference Range Interpretation Comments Urine Glucose (UA) (test code = 80542-0) NEGATIVE NEGATIVE [facility] [id number] 15:26:00* Test Item Value Reference Range Interpretation Comments Urine Ketones (test code = 42863-0) NEGATIVE NEGATIVE [facility] [id number] 15:26:00* Test Item Value Reference Range Interpretation Comments Urine Urobilinogen (test code = 06303-3) 1 0.2-1 [facility] Bzkhlirht3097-10-10 15:26:00* Test Item Value Reference Range Interpretation Comments Urine Bilirubin (test code = 1977-8) NEGATIVE NEGATIVE [facility] [id number] 15:26:00* Test Item Value Reference Range Interpretation Comments Urine Blood (test code = 42566-8) NEGATIVE NEGATIVE [facility]2018-08-30 12:35:00 [facility] [address] [address] Patient Name: BREONNA PIMENTEL MR #: [id number] : 1945 Age/Sex: 73/M Req #: [id number] Adm Physician: Ordered by: AXEL PEREZ MD Report #: [id number] Location: ER Room/Bed: Procedure: [id number] DX /CHEST SINGLE (PORTABLE) Exam Date: 08/30/18 Exam Ti me: 1215 REPORT STATUS: Signed E XAMINATION: CHEST SINGLE (PORTABLE) COMPARISON: None INDICATION: Fluid buildup, shortness of breath SOB, CHF [id number] 1215 DISCU SSION: Frontal view of the chest obtained at 1219 hours. HEART AND MEDIAS TINUM: The heart is enlarged with pacer/defibrillator wires. There are 2 pace maker battery packs, one each side of the chest. The distal aspect of the wire s are poorly visualized due to underpenetration of the image. LUNGS: Bibas ilar airspace opacities either atelectasis or pneumonia.. Pulmonary vascular m arkings are prominent. No interstitial edema. PLEURA: Small effusions may be present. No pneumothorax BONES AND SOFT TISSUES: No focal osseous lesio n. The soft tissues are normal. IMPRESSION: Cardiomegaly and pulmonar y vascular congestion. Bibasilar atelectasis or infiltrate. Small effusions ca nnot be excluded. Signed by: Dr. Kirby Hoang MD on 08/30/2018 12:54 P M Dictated By: KIRBY HOANG MD 1258 Transcribed By: NAHOMI on 08/30/18 1254 COPY TO: AXEL PEREZ MD Creatine Kinase [id number] 12:15:00* Test Item Value Reference Range Interpretation Comments Creatine Kinase MB (test code = 22600-8) 3.40 0-5.0 [facility] Ykwfgr0324-95-35 12:09:00* Test Item Value Reference Range Interpretation Comments Creatine Kinase (test code = 2157-6) 74 30-200 [facility] Partial Thromboplast Time 2018-08-30 12:04:00* Test Item Value Reference Range Interpretation Comments Activated Partial Thromboplast Time (test code = 65900-3) 40.5 23.8-35.5 H [facility]
--- OUTSIDE RECORDS SUMMARY | 2019-08-17 23:53 | XMS REPORT | Clinical Summary ---
Author [facility] Address Unknown Phone Unavailable Care Team Providers Care Upholstery Technician Name Role Phone Cristina Mayer MD PCP [...] 5 MG Take one 30 tablet 1 1 tablet tablet daily 5 at at 5 PM. Active Problems Problem Noted Date Cardiomyopathy, Echo 09/29/2014 EF <20%, Mibi 015 Ef 29%, Echo 03/03/2015 02/04/2015 EF 20-24%, Wearing LifeVest DM (diabetes mellitus) 03/03/2015 Systolic congestive heart failure, NYHA class 2 02/15 PAF (paroxysmal atrial fibrillation) 03/03/2015 History of IA (myocardial infarction) 03/03/2015 History of complete AV block 03/03/2015 Pacemaker, Since 199003/03/2015 S/P DDD AICD implant, SJM, Left, No DFTs, and Right-s ided dual chamber PPM 03/03/2015 in-situ, SJM, set to VVI 30, atrial deion d turned off due to high impedence, 03/03/2015 CAD (coronary artery disease) 11/02/2014 HTN (hypertension) HLD (hyperlipidemia) COPD (chronic obstructive pulmonary dis ease) Social History Date Tobacco Use Types Packs/Day [...] Shelf Expiration Date Model / Serial / L ot Implanted Type Area Manufactur er 12/16/2016 [id number] - 62CM / [id number] / Lead, Defibrillator Right ICD N/A: Heart MEDT RONIC: Ventricular 62cm Protecta - CARD [id number] RHY:PACING Implanted: Qty: 1 on 03/03/2015 by Wes Land MD 01/15/2017 [id number] / [id number] / Icd,Dual Chamber Df4 Connector ICD Left: Chest ST PRABHJOT Ellipse - [id number] MEDICAL Implanted: Qty: 1 on 03/03/2015 by INC Wes Haines MD 09/02/2016 4076 - 45CM / [id number] / Lead,Pacing Capsurefix Novus 45cm - Pacemakers N/A: Heart MEDTRONIC: [id number] CARD Implanted: Qty: 1 on 03/03/2015 by RHY:PACING Wes Haines MD SYS Results Not on fileafter 08/16/2018 Insurance Payer Benefit Subscriber ID Type Phone Address Plan / Group [facility] x[facility]xx MEDICARE ADV Advance Directives For more information, please contact: [address] [address] Date Inactivated Comments Code Status Date Activated 03/04/2015 1:24 PM Full Code 03/03/2015 6:31 AM This code status was determined by: Patient 11/02/2014 6:59 PM Full Code 11/02/2014 10:45 AM This code status was determined by: Patient
[2019-08-18] MEDS ORDERED: SODIUM CHLORIDE 0.9% 1000ML 1,000 ML IV STA ×2 (00:54→03:16)
--- NOTE | 2019-08-18 01:14 | Emergency Department Note ---
History of Present Illnes History of Present Illness Chief Complaint: Neurological History of Present Illness This is a 74 year old male presents to the ED for increasing genera lized weakness of 3-4 weeks duration. Patient denies CP SOB. Historian: Patient, Significant Other Arrival Mode: Car Onset (how long ago): week(s) (3) Severity: moderate Duration (how long): week(s) (3) Timing of current episode: constant Progression: worsening Relieving factors: none Exacerbating factors: none Associated symptoms: denies other symptoms Past Medical/Family History Physician Review I have reviewed the patient's past medical and family history. Any updates have been documented here. Past Medical History Recent Fever: No Clinical Suspicion of Infectio: No New/Unexplained Change in Ment: No Past Medical History: Diabetes, CHF, ESRD Other Medical History: SLEEP APNEA BPH Past Surgical History: Pacer/AICD Social History Smoking Cessation: Never Smoker Alcohol Use: None Any Illegal Drug Use: No Other Last Tetanus: UTD Review of Systems Review of Systems Constitutional: malaise, weakness EENTM: no symptoms Cardiovascular: no symptoms Respiratory: no symptoms Gastrointestinal: no symptoms Genitourinary: no symptoms Musculoskeletal: no symptoms Neurological: no symptoms Psychological: no symptoms Endocrine: no symptoms Hematological/Lymphatic: no symptoms Review of other systems All other systems reviewed and negative. Physical Exam Related Data Allergies: Coded Allergies: No Known Allergies (Unverified , 08/18/19) Triage Vital Signs Vital Signs Date Time Temp Pulse Resp B/P (MAP) Pulse Ox O2 Delivery O2 Flow Rate FiO2 08/18/19 00:33 97.4 80 16 92/67 100 Physical Exam CONSTITUTIONAL Constitutional: cachectic, ill appearing HENT HENT: other (corneal opacification) HENT L/R: left ext ear normal, right ext ear normal EYES Eyes: PERRL, conjunctivae normal NECK Neck: ROM normal PULMONARY Pulmonary: effort normal, breath sounds normal CARDIOVASCULAR Cardiovascular: regular rhythm, heart sounds normal, capillary refill normal, normal rate GASTROINTESTINAL Abdominal: soft, nontender, bowel sounds normal GENITOURINARY Genitourinary: exam deferred SKIN Skin: pale MUSCULOSKELETAL Musculoskeletal: ROM normal NEUROLOGICAL Neurological: alert, oriented x 3, no gross motor or sensory deficits PSYCHOLOGICAL Psychological: mood/affect normal Results Laboratory Lab results reviewed: Yes Laboratory comments CBC : wbc at 11.25 CMP : Na 125, K 5.3, Cr 2.04 Lactic Acid 2.5 Imaging Imaging results reviewed: Yes Impressions [facility] [address] [address] Patient Name: BREONNA PIMENTEL MR #: [id number] : 1945 Age/Sex: 74/M Req #: [id number] Adm Physician: Ordered by: PEDRO BURCIAGA DO Report #: [id number] Location: ER Room/Bed: Procedure: [id number] DX/CHEST SINGLE (PORTABLE) Exam Date: 08/18/19 Exam Time: 0125 REPORT STATUS: Signed EXAMINATION: CHEST SINGLE (PORTABLE) COMPARISON: Chest x-ray 09/06/2018 INDICATION: Weakness, confusion ^ERMD ORDER ^[id number] ^0125 ^Y DISCUSSION: Frontal view of the chest obtained at 0129 hours. HEART AND MEDIASTINUM: Stable cardiomegaly LINES: Pacer/defibrillator wires are redemonstrated and appear intact LUNGS/PLEURA: Diffuse hyperinflation suggestive of small airways disease. No pneumonia or pulmonary edema. There is blunting of the left lateral costophrenic angle. Right lateral costophrenic angle is sharp. No pneumothorax. BONES AND SOFT TISSUES: No focal osseous lesion. The soft tissues are normal. IMPRESSION: Stable cardiomegaly. No evidence of vascular congestion or CHF. Blunting of the left lateral costophrenic angle may be the result of pleural effusion or pleural thickening. Signed by: Dr. Kirby Quarles MD on 08/18/2019 1:49 AM Dictated By: KIRBY QUARLES MD 8 Transcribed By: NAHOMI on 08/18/19148 COPY TO: PEDRO BURCIAGA DO~ [facility] [address] [address] Patient Name: BREONNA PIMENTEL MR #: [id number] : 1945 Age/Sex: 74[facility] [id number] Req #: [id number] Adm Physician: Ordered by: PEDRO BURCIAGA DO Report #: [id number] Location: ER Room/Bed: Procedure: [id number] CT/CT BRAIN WO Exam Date: 08/18/19 Exam Time: 0125 REPORT STATUS: Signed EXAMINATION: Head CT without contrast. HISTORY:Weakness and confusion. COMPARISON:None. TECHNIQUE: Multidetector axial images were obtained from the foramen magnum to the vertex without contrast. The images were reconstructed using brain and bone algorithms. Thin section brain images were reformatted into coronal and sagittal planes. Dose modulation, iterative reconstruction, and/or weight based adjustment of the mA/kV was utilized to reduce the radiation dose to as low as reasonably achievable. Intravenous contrast: None IMAGE QUALITY: Acceptable. FINDINGS: Skull/scalp: No lytic or blastic. lesions. No surgical changes. Parenchyma: Nonspecific supratentorial white matter patchy hypodensity are likely related to small vessel ischemic changes. No acute hemorrhage, mass or acute major vascular territorial infarct. Arteries: No density suggestive of thrombosis. Atherosclerotic calcification in bilateral carotid siphon. Dural sinuses: No abnormal density suggestive of thrombosis. Ventricles: No hydrocephalus or displacement. Extra-axial spaces: No abnormal density. Brain volume: Generalized age-related cerebral volume loss. Craniocervical junction: No mass, Chiari malformation, or basilar invagination. Sella: No mass. Paranasal/mastoid sinuses: Imaged portions unremarkable. IMPRESSION: No acute intracranial abnormality. Mild supratentorial white matter microvascular ischemic changes. Generalized age-related cerebral volume loss. Signed by: Dr. Ramona Chung M.D. on 08/18/2019 1:50 AM Dictated By: RAMONA CHUNG MD 9 Transcribed By: NAHOMI on 08/18/19149 COPY TO: PEDRO BURCIAGA DO~ Procedures 12 Lead ECG Interpretation Employment Service Specialist: Interpreted by ED physician Date: Aug 18, 2019 Time: 02:55 Prior PROPERTY MANAGEMENT BOOKKEEPER tracings: reviewed BPM: 81 Pacin% capture Central Line Placement Central Line Location: left femoral Patient Placed on Monitor/Puls: Yes Prep: mask, gown, gloves, other Ultrasound Used for Placement: No Post Procedure: sutured in place, good blood return, all ports aspirated/f lushed/capped, sterile dressing applied Post Procedure X-ray: tip of catheter in good condition Patient tolerated procedure: well Complications: hematoma at puncture site Additional comments Initial attempt for CVC placement in R femoral vein. Unable to feed guide-wire and procedure aborted with resultant groin hematoma at R inguinal site. Second attempt at L femoral vein. Multiple attempt but ultimately CVC successfully placed in Left femoral vein with resultant groin hematoma Critical Care Time Total Critical Care Time (min): 31 Critcal care necessary due to: sepsis Assessment & Plan Assessment & Plan Final Impression: (1) Hypotension, chronic (2) Pleural effusion (3) Hyponatremia (4) Renal insufficiency (5) Hyperkalemia (6) Severe sepsis (7) CHF (congestive heart failure) Assessment & Plan patient with prior h/o of low blood pressure. CVC in the L femoral placed. Plan to admit to the medicine service Depart Disposition: ADMITTED Last Vital Signs Date Time Temp Pulse Resp B/P (MAP) Pulse Ox O2 Delivery O2 Flow Rate FiO2 08/18/19 00:33 97.4 80 16 92/67 100 Home Meds Active Scripts Glipizide* (GLUCOTROL XL*) 2.5 Mg Tab.er.24, 2.5 MG PO DAILY for 30 Days, 0 Refills Prov:ALEJANDRA CORONADO MD, ABIM 09/06/18 Potassium Chloride* (K DUR*) 10 Meq Tabcr, 10 MEQ PO DAILY, #30 0 Refills Prov:ALEJANDRA CORONADO MD, ABIM 09/06/18 Reported Medications Apixaban (Eliquis) 2.5 Mg Tablet, 2.5 MG PO BID 08/18/19 Midodrine Hcl (MIDODRINE HCL) 10 Mg Tablet, 10 MG PO TID 08/18/19 Metolazone (METOLAZONE) 5 Mg Tablet, 2.5 MG PO Mo,Fr, #30 TAB twice a wqeek. 2 hours before morning dose of Bumetanide 08/18/19 Bumetanide (BUMETANIDE) 1 Mg Tablet, 4 MG PO BID, #30 TAB 08/18/19 Lactobacillus Acidophilus (ACIDOPHILUS) 1 Each Tab.chew, 1 TAB PO DAILY 08/18/19 Mupirocin (MUPIROCIN) 22 Gm Oint...g., 22 GM TOP, EACH apply to affected area BID 08/18/19 Cholecalciferol (Vitamin D3) (VITAMIN D) 1,000 Unit Tablet, 5000 UNIT PO DAILY, #30 TAB 08/30/18 Cyanocobalamin (VITAMIN B-12) 1,000 Mcg Tab, 1000 MCG PO DAILY, #30 TAB 08/30/18 Tamsulosin Hcl* (FLOMAX*) 0.4 Mg Cap, 0.4 MG PO HS, #30 CAP 08/30/18 Pravastatin Sodium (PRAVASTATIN SODIUM) 40 Mg Tablet, 40 MG PO DAILY 08/30/18 [place]-3 Fatty Acids/Fish Oil (FISH OIL 1,200 MG SOFTGEL) 1 Each Capsule, 1200 MG PO DAILY 08/30/18 Carvedilol (CARVEDILOL) 3.125 Mg Tablet, 6.25 MG PO BID, #60 TAB 08/30/18 Budesonide/Formoterol Fumarate (SYMBICORT 160-4.5 MCG INHALER) 10.2 Gm Hfa.aer.ad, 1 SPR INH BID 08/30/18 Amiodarone Hcl (AMIODARONE HCL) 200 Mg Tablet, 100 MG PO EVERY OTHER DAY 08/30/18 Albuterol Sulf* (PROAIR HFA INHALER*) 8.5 Gm Inh, 1-2 SPR INH PRN PRN for SHORTNESS OF BREATH 08/30/18 Discontinued Reported Medications [eliiquis] No Conflict Check 08/18/19 Warfarin Sodium (WARFARIN SODIUM) 2.5 Mg Tablet, 5 MG PO DAILY, #30 TAB 08/30/18 Lisinopril (LISINOPRIL) 2.5 Mg Tablet, 2.5 MG PO DAILY, #30 TAB 08/30/18 Discontinued Scripts Warfarin Sodium (WARFARIN SODIUM) 2.5 Mg Tablet, 2.5 MG PO UD for 30 Days, TAB 0 Refills Take 2 tablets q Sun, Mon, Wed, Thurs, Fri. Take 1 tablet Q Tu, Sat Prov:ALEJANDRA CORONADO MD, [facility] 09/06/18 Spironolactone (SPIRONOLACTONE) 25 Mg Tablet, 25 MG PO BID for 30 Days, TAB 1 Refill Prov:ALEJANDRA CORONADO MD, [facility] 09/06/18 Bumetanide (BUMETANIDE) 1 Mg Tablet, 2 MG PO BID for 30 Days, 0 Refills Prov:ALEJANDRA CORONADO MD, [facility] 09/06/18 Medications in the ED Sodium Chloride 1,000 ml @ 0 mls/hr Q0M STAT IV ; Start 08/18/19 at 00:54; Stop 08/18/19 at 00:55 PEDRO BURCIAGA 2, 2020 01:14
[2019-08-18 01:42] LABS: BASOPHILS % 0.3 % (0.0-1.0); EOSINOPHILS % 0.3 % (0.0-6.0); HEMATOCRIT 43.7 % (38.2-49.6); HEMOGLOBIN 14.5 g/dL (14.0-18.0); LYMPHOCYTES % 8.4 % (18.0-39.1); MEAN CORPUSCULAR HEMOGLOBIN 33.3 pg (28-32); MEAN CORPUSCULAR HGB CONC 33.2 g/dL (31-35); MEAN CORPUSCULAR VOLUME 100.5 fL (81-99); MONOCYTES # (AUTO) 0.9 (0.2-0.8); MONOCYTES % 7.7 % (4.4-11.3); NEUTROPHILS # (AUTO) 9.3 (2.1-6.9); NEUTROPHILS % 82.7 % (38.7-80.0); PLATELET COUNT 206 x10e3/uL (140-360); RED BLOOD COUNT 4.35 x10e6/uL (4.3-5.7); RED CELL DISTRIBUTION WIDTH 17.5 % (11.7-14.4)
--- NOTE | 2019-08-18 01:53 | Diagnostic Imaging Report ---
EXAMINATION: Head CT without contrast. HISTORY:Weakness and confusion. COMPARISON:None. TECHNIQUE: Multidetector axial images were obtained from the foramen magnum to the vertex without contrast. The images were reconstructed using brain and bone algorithms. Thin section brain images were reformatted into coronal and sagittal planes. Dose modulation, iterative reconstruction, and/or weight based adjustment of the mA/kV was utilized to reduce the radiation dose to as low as reasonably achievable. Intravenous contrast: None IMAGE QUALITY: Acceptable. FINDINGS: Skull/scalp: No lytic or blastic. lesions. No surgical changes. Parenchyma: Nonspecific supratentorial white matter patchy hypodensity are likely related to small vessel ischemic changes. No acute hemorrhage, mass or acute major vascular territorial infarct. Arteries: No density suggestive of thrombosis. Atherosclerotic calcification in bilateral carotid siphon. Dural sinuses: No abnormal density suggestive of thrombosis. Ventricles: No hydrocephalus or displacement. Extra-axial spaces: No abnormal density. Brain volume: Generalized age-related cerebral volume loss. Craniocervical junction: No mass, Chiari malformation, or basilar invagination. Sella: No mass. Paranasal/mastoid sinuses: Imaged portions unremarkable. IMPRESSION: No acute intracranial abnormality. Mild supratentorial white matter microvascular ischemic changes. Generalized age-related cerebral volume loss. Signed by: Dr. Ramona Chung M.D. on 08/18/2019 1:50 AM
--- NOTE | 2019-08-18 01:53 | Diagnostic Imaging Report ---
EXAMINATION: CHEST SINGLE (PORTABLE) COMPARISON: Chest x-ray 09/06/2018 INDICATION: Weakness, confusion ^ERMD ORDER ^[id number] ^0125 ^Y DISCUSSION: Frontal view of the chest obtained at 0129 hours. HEART AND MEDIASTINUM: Stable cardiomegaly LINES: Pacer/defibrillator wires are redemonstrated and appear intact LUNGS/PLEURA: Diffuse hyperinflation suggestive of small airways disease. No pneumonia or pulmonary edema. There is blunting of the left lateral costophrenic angle. Right lateral costophrenic angle is sharp. No pneumothorax. BONES AND SOFT TISSUES: No focal osseous lesion. The soft tissues are normal. IMPRESSION: Stable cardiomegaly. No evidence of vascular congestion or CHF. Blunting of the left lateral costophrenic angle may be the result of pleural effusion or pleural thickening. Signed by: Dr. Fabián Quarles MD on 08/18/2019 1:49 AM
[2019-08-18 02:08] LABS: ALBUMIN 3.2 g/dL (3.5-5.0); ALBUMIN/GLOBULIN RATIO 0.9 (0.8-2.0); ANION GAP 17.3 mmol/L (8-16); CALCIUM 9.4 mg/dL (8.4-10.2); CREATININE, SERUM 2.04 mg/dL (0.72-1.25); POTASSIUM 5.3 mmol/L (3.5-5.1)
[2019-08-18 02:09] LABS: CREATINE KINASE MB 7.6 ng/mL (0-5.0)
[2019-08-18] MEDS ORDERED: PIPER-TAZ 3.375 GM 50 ML IV SCH ×2 (03:00→10:00)
[2019-08-18] MEDS ORDERED: SODIUM CHLORIDE 0.9% 1000ML 1,000 ML ONE (03:20)
--- NOTE | 2019-08-18 06:21 | NUR ---
TRANSFER INITIATED TO [facility]
[2019-08-18 06:38] LABS: CLARITY,URINE CLEAR (CLEAR); COLOR,URINE YELLOW (YELLOW); KETONES,URINE NEGATIVE (NEGATIVE); LEUKOCYTE ESTERASE ,URINE NEGATIVE (NEGATIVE); NITRITE,URINE NEGATIVE (NEGATIVE); PROTEIN,URINE DIPSTICK NEGATIVE (NEGATIVE)
[2019-08-18 06:39] LABS: BILIRUBIN,URINE NEGATIVE (NEGATIVE); URINE UROBILINOGEN 0.2 mg/dL (0.2 - 1)
[2019-08-18 06:55] LABS: BACTERIA,URINE RARE /HPF; EPITHELIAL CELLS,URINE RARE /LPF; RBC,URINE 0-5 /HPF (0-5); TRANSITIONAL EPI CELLS,URINE RARE; WBC,URINE (MAN) 0-5 /HPF (0-5)
--- OUTSIDE RECORDS SUMMARY | 2019-08-18 07:34 | XMS REPORT | Continuity of Care Document ---
Author Author [facility] Organization [facility] Address 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 Name Role Phone NONSTAFF PCP Unavailable PEDRO BURCIAGA Attphys Unavailable Geovani MONTIEL Attphys Unavailable Geovani MONTIEL YICHING Admphys Unavailable Payers Payer Name Policy Type Policy Number Effective Date Expiration Date [employer] Medicare Advantage [id number] 2014 00:0 0:00 [facility] Problems Condition Name Condition Details Condition Category Status Onset Date Resolution Date Last Treatment Date Treating Clinician Comments Source Acute on chronic congestive heart failure CHF exacerbation Problem Activ e [facility] Allergies, Adverse Reactions, Alerts This patient has no known allergies or adverse reactions. Medications Ordered Medication Name Filled Medication Name Start Date Stop Da te Current Medication? Ordering Clinician Indication Dosage Frequency Signature (SIG) Comments Components Source Bumetanide 1 Mg Tablet Bumetanide 1 Mg Tablet 2018-09-06 00:00:00 Yes Alejandra Coronado Md 2 Twice A Day [facility] Glipizide (Glucotrol Xl*) 2.5 Mg Tab.er.24 Glipizide ( Glucotrol Xl*) 2.5 Mg Tab.er.24 2018-09-06 00:00:00 Yes Alejandra Coronado Md 2.5 Daily [facility] Potassium Chloride (K Dur*) 10 Meq Tabcr Potassium Chl oride (K Dur*) 10 Meq Tabcr 2018-09-06 00:00:00 Yes Alejandra Coronado Md 10 Daily [facility] Spironolactone 25 Mg Tablet Spironolactone 25 Mg Tablet 2018-09-06 00:00:00 Yes Alejandra Coronado Md 25 Twice A Day [facility] Warfarin Sodium 2.5 Mg Tablet Warfarin Sodium 2.5 Mg Tablet 2018 00:00:00 Yes Alejandra Coronado Md 2.5 Use As Directed [facility] Albuterol Sulfate (Proair Hfa Inhaler*) 8.5 Gm Inh Alb uterol Sulfate (Proair Hfa Inhaler*) 8.5 Gm Inh Yes As Needed as needed for Shortness Of Breath [facility] Amiodarone Hcl 200 Mg Tablet Amiodarone Hcl 200 Mg Tablet Y es 100 Every Other Day [facility] Budesonide/Formoterol Fumarate (Symbicor t 160-4.5 Mcg Inhaler) 10.2 Gm Hfa.aer.ad Budesonide/Formoterol Fumarate (Symbicor t 160-4.5 Mcg Inhaler) 10.2 Gm Hfa.aer.ad Yes 1 Twice A Day [facility] Carvedilol 3.125 Mg Tablet Carvedilol 3.125 Mg Tablet Yes 6.25 Twice A Day [facility] Cholecalciferol (Vitamin D3) (Vitamin D) 1,000 Unit [place] blet Cholecalciferol (Vitamin D3) (Vitamin D) 1,000 Unit Tablet Yes 5000 Daily [facility] Cyanocobalamin (Vitamin B-12) 1,000 Mcg Tab Cyanocobal pascual (Vitamin B-12) 1,000 Mcg Tab Yes [address] [facility] Lisinopril 2.5 Mg Tablet Lisinopril 2.5 Mg Tablet Yes 2.5 Daily [facility] [place]-3 Fatty Acids/Fish Oil (Fish Oil 1,200 Mg Softge l) 1 Each Capsule [place]-3 Fatty Acids/Fish Oil (Fish Oil 1,200 Mg Softgel) 1 Each Capsule Yes 1200 Daily [facility] Pravastatin Sodium 40 Mg Tablet Pravastatin Sodium 40 Mg Tablet Yes 40 Daily [facility] Tamsulosin Hcl (Flomax*) 0.4 Mg Cap Tamsulosin Hcl (Flomax*) 0.4 Mg C ap Yes .4 Daily [facility] Warfarin Sodium 2.5 Mg Tablet Warfarin Sodium 2.5 Mg Tablet Yes 5 Daily [facility] Bumetanide 1 Mg Tablet, 1 Mg Oral Bumetanide 1 Mg Tablet, 1 Mg O ral 2018-09-06 00:00:00 No 1 Daily [facility] Metformin Hcl 500 Mg Tablet, 1000 Mg Oral Metformin Hc l 500 Mg Tablet, 1000 Mg Oral 2018-09-06 00:00:00 No 1000 Twice A Day [facility] Spironolactone 25 Mg Tablet, 25 Mg Oral Spironolactone 25 Mg Tablet, 25 Mg Oral 2018-09-06 00:00:00 No 25 Daily [facility] Procedures Procedure Date / Time Performed Performing Clinician Nolan e Ultrasound, renal 2018-09-01 00:00:00 MARVA ASHLEY [facility] Encounters Start Date/Time End Date/Time En[facility] ID Source 2018-08-30 14:07:00 2018-08-30 14:07:00 Admitted Inpatient 1 MICHELLE MONTIEL [facility] [id number] [facility] Results Test Description Test Time Test Comments Results Result Comments Source CHEST SINGLE (PORTABLE) 2019-08-18 01:47:00 [facility] [address] [address] Patient Name: BREONNA PIMENTEL MR #: [id number] : 1945 Age/Sex: 74/M Req #: [id number] Adm Physician: Ordered by: PEDRO BURCIAGA DO Report #: [id number] Location: ER Room/Bed: Procedure: [id number] DX/CHEST SINGLE (PORTABLE) Exam Date: 08/18/19 Exam Time: 0125 REPORT STATUS: Signed EXAMINATION: CHEST SINGLE (PORTABLE) COMPARISON: Chest x-ray 09/06/2018 INDICATION: Weakness, confusion ERMD ORDER [id number] Y DISCUSSION: Frontal view of the chest obtained at 0129 hours. HEART AND MEDIASTINUM: Stable cardiomegaly LINES: Pacer/defibrillator wires are redemonstrated and appear intact LUNGS/PLEURA: Diffuse hyperinflation suggestive of small airways disease. No pneumonia or pulmonary edema. There is blunting of the left lateral costophrenic angle. Right lateral costophrenic angle is sharp. No pneumothorax. BONES AND SOFT TISSUES: No focal osseous lesion. The soft tissues are normal. IMPRESSION: Stable cardiomegaly. No evidence of vascular congestion or CHF. Blunting of the left lateral costophrenic angle may be the result of pleural effusion or pleural thickening. Signed by: Dr. Kirby Hoang MD on 08/18/2019 1:49 AM Dictated By: KIRBY HOANG MD 8 Transcribed By: NAHOMI on 08/18/19148 COPY TO: PEDRO BURCIAGA DO CT BRAIN WO 2019-08-18 01:46:[address] [address] Patient Name: BREONNA PIMENTEL MR #: [id number] : 1945 Age/Sex: 74/M Req #: [id number] Adm Physician: Ordered by: PEDRO BURCIAGA DO Report #: [id number] Location: ER Room/Bed: Procedure: CT/CT BRAIN WO Exam Date: 08/18/19 Exam Time: 0125 REPORT STATUS: Signed EXAMINATION: Head CT without contrast. HISTORY:Weakness and confusion. COMPARISON:None. TECHNIQUE: Multidetector axial images were obtained from the foramen magnum to the vertex without contrast. The images were reconstructed using brain and bone algorithms. Thin section brain images were reformatted into coronal and sagittal planes. Dose modulation, iterative reconstruction, and/or weight based adjustment of the mA/kV was utilized to reduce the radiation dose to as low as reasonably achievable. Intravenous contrast: None IMAGE QUALITY: Acceptable. FINDINGS: Skull/scalp: No lytic or blastic. lesions. No surgical ha es. Parenchyma: Nonspecific supratentorial white matter patchy hypodensity are likely related to small vessel ischemic changes. No acute hemorrhage, mass or acute major vascular territorial infarct. Arteries: No density suggestive of thrombosis. Atherosclerotic calcification in bilateral carotid siphon. Dural sinuses: No abnormal density suggestive of thrombosis. Ventricles: No hydrocephalus or displacement. Extra-axial spaces: No abnormal density. Brain volume: Generalized age-related cerebral volume loss. Craniocervical junction: No mass, Chiari malformation, or basilar invagination. Sella: No mass. Paranasal/mastoid sinuses: Imaged portions unremarkable. IMPRESSION: No acute intracranial abnormality. Mild supratentorial white matter microvascular ischemic changes. Generalized age-related cerebral volume loss. Signed by: Dr. Ramona Chung M.D. on 08/18/2019 1:50 AM Dictated By: RAMONA CHUNG MD 9 Transcribed By: NAHOMI on 08/18/19149 COPY TO: PEDRO BURCIAGA DO Sodium Level 2018-09-06 13:29:00 Test Item Sodium Level (test code = 2951-2) 138 136-145 [facility] Avrrw6693-57-69 13:29:00* Test Item Value Reference Range Interpretation Comments Potassium Level (test code = 2823-3) 3.4 3.5-5.1 L [facility] HospitalChloride Icyws7508-76-28 13:29:00* Test Item Value Reference Range Interpretation Comments Chloride Level (test code = 2075-0) 87 98-107 L [facility] HospitalCarbon Dioxide Qkcuf7424-66-83 13:29:00* Test Item Value Reference Range Interpretation Comments Carbon Dioxide Level (test code = 2028-9) 38 22-29 H [facility] HospitalAnion Qfz9732-19-46 13:29:00* Test Item Value Reference Range Interpretation Comments Anion Gap (test code = 12177-8) 16.4 8-16 H [facility] HospitalBlood Urea Pfoasbna0866-05-51 13:29:00* Test Item Value Reference Range Interpretation Comments Blood Urea Nitrogen (test code = 3094-0) 60 7-26 H [facility] HospitalCreatinine2019-06-22 13:29:00* Test Item Value Reference Range Interpretation Comments Creatinine (test code = 2160-0) 2.10 0.72-1.25 H [facility] HospitalBUN/Creatinine Qnnif2260-05-53 13:29:00* Test Item Value Reference Range Interpretation Comments BUN/Creatinine Ratio (test code = 3097-3) 29 6-25 H [facility] HospitalEstimat Glomerular Filtration Rate 2018-09-06 13:29:00* Test Item Value Reference Range Interpretation Comments Estimat Glomerular Filtration Rate (test code = 370352018) 31 >60 L Ranges were taken from the National Kidney Disease Education Program and the [facility] literature.Reference ranges:60 or greater: Qamvte58-03 ( for 3 consecutive months): Chronic kidney disease 15 or less: Kidney failureBaptist Saint Anthony's HospitalGlucose Ixhyd6763-74-93 13:29:00* Test Item Value Reference Range Interpretation Comments Glucose Level (test code = ANO5137) 218 74-118 H [facility] HospitalCalcium Qtjqc2282-20-78 13:29:00* Test Item Value Reference Range Interpretation Comments Calcium Level (test code = 56734-7) 10.3 8.4-10.2 H [facility] HospitalTotal Cmxmvmuzo6970-27-62 13:29:00* Test Item Value Reference Range Interpretation Comments Total Bilirubin (test code = 1975-2) 1.3 0.2-1.2 H [facility] HospitalAspartate Amino Transf (AST/SGOT) 2018-09-06 13:29:00* Test Item Value Reference Range Interpretation Comments Aspartate Amino Transf (AST/SGOT) (test code = Aspartate Amino Transf (AST/SGOT)) 32 5-34 [facility] HospitalAlanine Aminotransferase (ALT/SGPT) 2018-09-06 13:29:00* Test Item Value Reference Range Interpretation Comments Alanine Aminotransferase (ALT/SGPT) (test code = 1742-6) 136 0-55 H [facility] HospitalTotal Adngukp4559-15-25 13:29:00* Test Item Value Reference Range Interpretation Comments Total Protein (test code = 2885-2) 6.7 6.5-8.1 [facility] HospitalAlbumin2019-06-22 13:29:00* Test Item Value Reference Range Interpretation Comments Albumin (test code = 1751-7) 3.4 3.5-5.0 L [facility] HospitalGlobulin2019-06-22 13:29:00* Test Item Value Reference Range Interpretation Comments Globulin (test code = 89259-1) 3.3 2.3-3.5 [facility] HospitalAlbumin/Globulin Rekmh6922-03-38 13:29:00 * Test Item Value Reference Range Interpretation Comments Albumin/Globulin Ratio (test code = 1759-0) 1.0 0.8-2.0 [facility] HospitalAlkaline Bejxikpjqxh0988-28-70 13:29:00* Test Item Value Reference Range Interpretation Comments Alkaline Phosphatase (test code = 6768-6) 76 40-150 [facility] HospitalProthrombin Rbcu5146-39-37 13:20:00* Test Item Value Reference Range Interpretation Comments Prothrombin Time (test code = 5902-2) 32.3 11.9-14.5 H [facility] HospitalProthromb Time International Ratio 2018-09-06 13:20:00* Test Item Value Reference Range Interpretation Comments Prothromb Time International Ratio (test code = 6301-6) 3.05 Oral Anticoagulant Therapy INR Values:1. Low Intensity Therapy 1.5 - 2.02 . Moderate Intensity Therapy 2.0 - 3.03. High Intensity Therapy(1) 2.5 - 3. 54. High Intensity Therapy(2) 3.0 - 4.05. Panic Value INR > 5.[address] [facility] CenterBedside Zvchmbu2576-35-86 11:36:00* Test Item Value Reference Range Interpretation Comments Bedside Glucose (test code = 51398-9) 161 70-120 H Meter ID: [id number] [facility]2018-09-06 07:34:[address] [address] Patient Name: BREONNA PIMENTEL MR #: [id number] : 1945 Age/Sex: 73/M Req #: [id number] Adm Physician: MICHELLE MONTIEL MD Ordered by: ALEJANDRA CORONADO MD Report #: [id number] [facility] Room/Bed: [facility] Procedure: [id number] DX/CHEST SINGLE (PORTABLE) Exam Date: 09/06/18 Exam Time: 614 REPORT STATUS: Signed EXAMINATION: CHEST SINGLE (PORTABLE) INDICATION: chf [id number] COMPARISON: 09/04/2018 FINDINGS: AP view TUBES and [...] TO: ALEJANDRA CORONADO MD, ABIM B-Type Natriuretic Rmqcxqg9089-59-43 07:09:00* Test Item Value Reference Range Interpretation Comments B-Type Natriuretic Peptide (test code = 02200-0) 1896.0 0-100 H [facility] HospitalMagnesium Kntwy5537-99-85 07:03:00* Test Item Value Reference Range Interpretation Comments Magnesium Level (test code = 76983-9) 2.1 1.3-2.1 [facility] HospitalCHEST SINGLE (PORTABLE)2018-09-04 06:49:00 [address] [address] Patient Name: BREONNA PIMENTEL MR #: [id number] : 1945 Age/Sex: 73/M Req #: [id number] Adm Physician: MICHELLE MONTIEL MD Ordered by: MICHELLE MONTIEL MD Report #: [id number] Location: MED/SURG3 Room/Bed: [facility] Procedure: [id number] D X/CHEST SINGLE (PORTABLE) Exam Date: 09/04/18 Exam T garima: 0540 REPORT STATUS: Signed EXAMINATION: CHEST SINGLE (PORTABLE) INDICATION: chf [id number] COMPARISON: 09/03/2018 FINDINGS: AP view TUB ES [...] By: NAHOMI mancilla 09/04/18651 COPY TO: MICHELLE MONTIEL MD White Blood Count 2018-09-04 06:35:00* Test Item Value Reference Range Interpretation Comments White Blood Count (test code = 6690-2) 10.58 4.8-10.8 [facility] HospitalRed Blood Rzfto2679-37-94 06:35:00* Test Item Value Reference Range Interpretation Comments Red Blood Count (test code = 789-8) 3.56 4.3-5.7 L [facility] HospitalHemoglobin2019-06-20 06:35:00* Test Item Value Reference Range Interpretation Comments Hemoglobin (test code = 61958-2) 11.5 14.0-18.0 L [facility] HospitalHematocrit2019-06-20 06:35:00* Test Item Value Reference Range Interpretation Comments Hematocrit (test code = 4544-3) 35.7 38.2-49.6 L [facility] HospitalMean Corpuscular Nlomec4075-74-25 06:35:00* Test Item Value Reference Range Interpretation Comments Mean Corpuscular Volume (test code = 787-2) 100.3 81-99 H [facility] HospitalMean Corpuscular Lrktjxagwg1179-84-96 06:35:00* Test Item Value Reference Range Interpretation Comments Mean Corpuscular Hemoglobin (test code = 785-6) 32.3 28-32 H [facility] HospitalMean Corpuscular Hemoglobin Concent 2018-09-04 06:35:00* Test Item Value Reference Range Interpretation Comments Mean Corpuscular Hemoglobin Concent (test code = 786-4) 32.2 31-35 [facility] HospitalRed Cell Distribution Fgkzd4951-14-59 06:35:00* Test Item Value Reference Range Interpretation Comments Red Cell Distribution Width (test code = 72628-5) 16.7 11.7 -14.4 H [facility] HospitalPlatelet Hhgvl6236-93-87 06:35:00* Test Item Value Reference Range Interpretation Comments Platelet Count (test code = 777-3) 252 140-360 [facility] HospitalNeutrophils (%) (Auto)2018-09-04 06:35:00 * Test Item Value Reference Range Interpretation Comments Neutrophils (%) (Auto) (test code = 32617-8) 78.2 38.7-80.0 [facility] HospitalLymphocytes (%) (Auto)2018-09-04 06:35:00 * Test Item Value Reference Range Interpretation Comments Lymphocytes (%) (Auto) (test code = 736-9) 9.4 18.0-39.1 L [facility] HospitalMonocytes (%) (Auto)2018-09-04 06:35:00* Test Item Value Reference Range Interpretation Comments Monocytes (%) (Auto) (test code = 5905-5) 10.7 4.4-11.3 [facility] HospitalEosinophils (%) (Auto)2018-09-04 06:35:00 * Test Item Value Reference Range Interpretation Comments Eosinophils (%) (Auto) (test code = 713-8) 0.9 0.0-6.0 [facility] HospitalBasophils (%) (Auto)2018-09-04 06:35:00* Test Item Value Reference Range Interpretation Comments Basophils (%) (Auto) (test code = 706-2) 0.3 0.0-1.0 [facility] HospitalIM GRANULOCYTES %2018-09-04 06:35:00* Test Item Value Reference Range Interpretation Comments IM GRANULOCYTES % (test code = IM GRANULOCYTES %) 0.5 0.0- 1.0 [facility] HospitalNeutrophils # (Auto)2018-09-04 06:35:00* Test Item Value Reference Range Interpretation Comments Neutrophils # (Auto) (test code = 751-8) 8.3 2.1-6.9 H [facility] HospitalLymphocytes # (Auto)2018-09-04 06:35:00* Test Item Value Reference Range Interpretation Comments Lymphocytes # (Auto) (test code = 47161-3) 1.0 1.0-3.2 [facility] HospitalMonocytes # (Auto)2018-09-04 06:35:00* Test Item Value Reference Range Interpretation Comments Monocytes # (Auto) (test code = 742-7) 1.1 0.2-0.8 H [facility] HospitalEosinophils # (Auto)2018-09-04 06:35:00* Test Item Value Reference Range Interpretation Comments Eosinophils # (Auto) (test code = 711-2) 0.1 0.0-0.4 [facility] HospitalBasophils # (Auto)2018-09-04 06:35:00* Test Item Value Reference Range Interpretation Comments Basophils # (Auto) (test code = 704-7) 0.0 0.0-0.1 [facility] HospitalAbsolute Immature Granulocyte (auto 2018-09-04 06:35:00* Test Item Value Reference Range Interpretation Comments Absolute Immature Granulocyte (auto (bishop t code = Absolute Immature Granulocyte (auto) 0.05 0-0.1 [facility] HospitalUrine Random Total Yjjdrmz1217-95-27 14:10:00* Test Item Value Reference Range Interpretation Comments Urine Random Total Protein (test code = 2888-6) < 6.8 1-14 [facility] HospitalUrine Lpfqgmhzcy5487-61-63 14:10:00* Test Item Value Reference Range Interpretation Comments Urine Creatinine (test code = 2161-8) 18.69 63-166 L [facility] HospitalUrine Protein/Creatinine Fydtm7317-80-35 14:10:00* Test Item Value Reference Range Interpretation Comments Urine Protein/Creatinine Ratio (test code = 07527-2) 0.00 [facility] HospitalCHEST SINGLE (PORTABLE)2018-09-03 07:00:00 [address] [address] [address] Patient Name: BREONNA PIMENTEL MR #: [id number] : 1945 Age/Sex: 73/M Req #: [id number] Adm Physician: MICHELLE MONTIEL MD Ordered by: MICHELLE MONTIEL MD Report #: [id number] Location: [facility] Room/Bed: [facility] Procedure: [id number] D X/CHEST SINGLE (PORTABLE) Exam Date: 09/03/18 [...] Interpretation Comments Direct Bilirubin (test code = 42479-9) 0.8 0.0-0.[address] [facility] CenterCHES SINGLE (PORTABLE)2018-09-02 06:56:00 [facility] [address] [place] [address] Patient Name: BREONNA PIMENTEL MR #: [id number] : 1945 Age/Sex: 73/M Req #: [id number] Adm Physician: MICHELLE MONTIEL MD Ordered by: MICHELLE MONTIEL MD Report #: [id number] Location: MED/SURG3 Room/Bed: [facility] Procedure: [id number] D X/CHEST SINGLE (PORTABLE) Exam Date: 09/02/18 Exam T garima: 0636 REPORT STATUS: Signed EXAMINATION: CHEST SINGLE (PORTABLE) INDICATION: [id number] COMPARISON: 09/01/2018 FINDINGS: AP view [...] 6:57 AM Dictated By: AMILCAR DOWLING MD Burci[place] scribed By: NAHOMI on 09/02/1857 COPY TO: MICHELLE MONTIEL MD US RENAL RETROPERITONEAL VGZA5238-09-19 17:33:00 [place] [address] Patient Name: BREONNA PIMENTEL MR #: [id number] : 1945 Age/Sex: 73/M Req #: [id number] Adm Physician: MICHELLE MONTIEL MD Ordered by: GABI DOMINGO, MARVA DOMINGO Report #: [id number] [facility] Room/Bed: [facility] Procedure: [id number] US/US RENAL RETROPERITONEAL COMP Exam Date: 09/01/18 [...] NAHOMI on 09/01/181733 COPY TO: MARVA ASHLEY CHEST SINGLE (PORTABLE) 2018-09-01 06:47:00 [facility] [address] [address] Patient Name: BREONNA PIMENTEL MR #: [id number] : 1945 Age/Sex: 73/M Req #: [id number] Adm Physician: MICHELLE MONTIEL MD Ordered by: MICHELLE MONTIEL MD Report #: [id number] Location: MED/SURG3 Room/Bed: [facility] Procedure: [id number] D X/CHEST SINGLE (PORTABLE) Exam Date: 09/01/18 [...] AM Dictated By: SHIVA DRIVER MD, MD 0648 Transcribed By: NAHOMI on 09/01/18 0648 COPY TO: MICHELLE BHATTI MD Triglycerides Djhyn1077-71-80 07:33:00* Test Item Value Reference Range Interpretation Comments Triglycerides Level (test code = 2571-8) 49 0-149 [facility] HospitalCholesterol Qzcsg0637-72-82 07:33:00* Test Item Value Reference Range Interpretation Comments Cholesterol Level (test code = 2093-3) 70 0-199 Less than 200 mg/dL Low Sgap331 - 239 mg/dL Borderline Fyba412 m g/dl and greater High Risk [facility] HospitalLDL Wtgtkhregmu2399-71-42 07:33:00* Test Item Value Reference Range Interpretation Comments LDL Cholesterol (test code = 2089-1) 26 60-130 L [facility] HospitalHDL Nehvwgvnmtv6819-43-42 07:33:00* Test Item Value Reference Range Interpretation Comments HDL Cholesterol (test code = 2085-9) 34 40-60 L [facility] HospitalCholesterol/HDL Qhirz8038-78-66 07:33:00 * Test Item Value Reference Range Interpretation Comments Cholesterol/HDL Ratio (test code = 9830-1) 2.1 3.9-4.7 L [facility] HospitalTroponin S6905-91-33 07:17:00* Test Item Value Reference Range Interpretation Comments Troponin I (test code = GXO4837) 0.024 0-0.300 [facility] HospitalCHEST SINGLE (PORTABLE)2018-08-31 06:19:00 [place] [address] Patient Name: BREONNA PIMENTEL MR #: [id number] : 1945 Age/Sex: 73/M Req #: [id number] Adm Physician: MICHELLE MONTIEL MD Ordered by: MICHELLE MONTIEL MD Report #: [id number] Location: MED/SURG3 Room/Bed: [facility] Procedure: [id number] D X/CHEST SINGLE (PORTABLE) Exam Date: 08/31/18 [...] Dictated By: SHIVA MCARTHUR MD, MD 0 [place] scribed By: NAHOMI on 08/31/18620 COPY TO: MICHELLE MONTIEL MD Urine IME3554-35-52 15:36:00* Test Item Value Reference Range Interpretation Comments Urine WBC (test code = 5821-4) 0-5 0-5 [facility] HospitalUrine QMG1552-50-73 15:36:00* Test Item Value Reference Range Interpretation Comments Urine RBC (test code = 87161-1) 0-5 0-5 [facility] HospitalUrine Myngmjoc1297-76-00 15:36:00* Test Item Value Reference Range Interpretation Comments Urine Bacteria (test code = 99293-7) RARE NONE [facility] HospitalUrine Epithelial Mnaww7302-31-04 15:36:00 * Test Item Value Reference Range Interpretation Comments Urine Epithelial Cells (test code = 43773-5) RARE NONE [facility] HospitalUrine Ldydw9011-61-67 15:26:00* Test Item Value Reference Range Interpretation Comments Urine Color (test code = 5778-6) YELLOW YELLOW [facility] HospitalUrine Pjhsfrh7561-42-50 15:26:00* Test Item Value Reference Range Interpretation Comments Urine Clarity (test code = 49543-1) CLEAR CLEAR [facility] Specific Pgwhufz1787-94-57 15:26:00 * Test Item Value Reference Range Interpretation Comments Urine Specific [place] (test code = 5811-5) 1.020 1.010-1.02 5 [facility] HospitalUrine jQ5691-88-73 15:26:00* Test Item Value Reference Range Interpretation Comments Urine pH (test code = 32835-4) 5 5-7 [facility] HospitalU[facility] Leukocyte Jqcuhnwq0545-75-55 15:26:00* Test Item Value Reference Range Interpretation Comments Urine Leukocyte Esterase (test code = 40998-1) NEGATIVE NEGATIV E [facility] HospitalUrine Oyjizwu1635-99-67 15:26:00* Test Item Value Reference Range Interpretation Comments Urine Nitrite (test code = 51620-0) NEGATIVE NEGATIVE [facility] HospitalUrine Wtcgltu4377-45-35 15:26:00* Test Item Value Reference Range Interpretation Comments Urine Protein (test code = 54874-1) TRACE NEGATIVE H [facility] HospitalUrine Glucose (UA)2018-08-30 15:26:00* Test Item Value Reference Range Interpretation Comments Urine Glucose (UA) (test code = 69857-9) [facility]IVE [facility]IVE [facility] [id number] 15:26:00* Test Item Value Reference Range Interpretation Comments Urine Ketones (test code = 14248-9) NEGATIVE [facility]IVE [facility] [id number] 15:26:00* Test Item Value Reference Range Interpretation Comments Urine Urobilinogen (test code = 74586-0) 1 0.2-1 [facility] Llrmlvzce1077-77-38 15:26:00* Test Item Value Reference Range Interpretation Comments Urine Bilirubin (test code = 1977-8) NEGATIVE [facility]IVE [facility] [id number] 15:26:00* Test Item Value Reference Range Interpretation Comments Urine Blood (test code = 13417-3) NEGATIVE NEGATIVE [facility]2018-08-30 12:35:00 [facility] [address] [address] Patient Name: BREONNA PIMENTEL MR #: [id number] : 1945 Age/Sex: 73/M Req #: [id number] Adm Physician: Ordered by: AXEL PEREZ MD Report #: [id number] Location: ER Room/Bed: Procedure: [id number] DX /CHEST SINGLE (PORTABLE) Exam Date: 08/30/18 Exam Ti me: 1215 REPORT STATUS: Signed E XAMINATION: CHEST SINGLE (PORTABLE) COMPARISON: None INDICATION: Fluid buildup, shortness of breath SOB, CHF [id number] 1215 DISCU SSION: Frontal view of the [...] P M Dictated By: KIRBY HOANG MD 53 Transcribed By: NAHOMI on 08/30/181253 COPY TO: AXEL PEREZ MD Creatine Kinase [id number] 12:15:00* Test Item Value Reference Range Interpretation Comments Creatine Kinase MB (test code = 23235-5) 3.40 0-5.0 [facility] Quulbc8193-96-94 12:09:00* Test Item Value Reference Range Interpretation Comments Creatine Kinase (test code = 2157-6) 74 30-200 [facility] Partial Thromboplast Time 2018-08-30 12:04:00* Test Item Value Reference Range Interpretation Comments Activated Partial Thromboplast Time (test code = 75598-0) 40.5 23.8-35.5 [facility]
--- OUTSIDE RECORDS SUMMARY | 2019-08-18 07:34 | XMS REPORT | Clinical Summary ---
Author Author [facility] Address Unknown Phone Unavailable Care Team Providers Care Black Leather Trimmer Name Role Phone Cristina Mayer MD PCP [...] PAF (paroxysmal atrial fibrillation) 03/03/2015 History of CA (myocardial infarction) 03/03/2015 History of complete AV [...] Manufactur er 12/16/2016 6947M - 62CM / [id number] / Lead, Defibrillator Right ICD N/A: Heart MEDT RONIC: Ventricular 62cm Protecta - CARD [id number] RHY:PACING Implanted: Qty: 1 on 03/03/2015 by Wes Land MD 01/15/2017 [id number] / [id number] / Icd,Dual Chamber Df4 Connector ICD Left: Chest ST PRABHJOT Ellipse - [id number] MEDICAL Implanted: Qty: 1 on 03/03/2015 by INC Wes Haines MD 09/02/2016 4076 - 45CM / [id number] / Lead,Pacing Capsurefix Novus 45cm - Pacemakers N/A: Heart MEDTRONIC: [id number] CARD Implanted: Qty: 1 on 03/03/2015 by RHY:PACING Wes Haines MD SYS Results Not on fileafter 08/17/2018 Insurance Payer Benefit Subscriber ID Type Phone Address Plan / Group [facility] x[facility]xx MEDICARE ADV Advance Directives For more information, please contact: [address] [address] Date Inactivated Comments Code Status Date Activated 03/04/2015 1:24 PM Full Code 03/03/2015 6:31 AM This code status was determined by: Patient 11/02/2014 6:59 PM Full Code 11/02/2014 10:45 AM This code status was determined by: Patient
[2019-08-18] MEDS ORDERED: ONDANSETRON HCL INJ 2MG/ML 2ML 2 MG/ML VIAL IV PRN (09:00)
[2019-08-18] MEDS ORDERED: ACETAMINOPHEN 325 MG TAB PO PRN (09:00)
--- NOTE | 2019-08-18 09:27 | NUR ---
dr oconnor called and notified of pt bp 81/56 (map 65) p 70 states he will put in for midodrine order himself
[2019-08-18] MEDS ORDERED: MIDODRINE 2.5 MG TAB PO ONE (09:45)
[2019-08-18 10:07] LABS: CALCIUM 8.6 mg/dL (8.4-10.2); CREATININE, SERUM 1.76 mg/dL (0.72-1.25)
[2019-08-18 10:57] VITALS: BP 86/64
--- NOTE | 2019-08-18 10:59 | Diagnostic Imaging Report ---
EXAMINATION: CHEST SINGLE (PORTABLE) INDICATION: Pneumonia COMPARISON: Chest radiograph 08/18/2019 FINDINGS: LINES/TUBES:Left chest AICD. Right chest pacer. LUNGS:There is perihilar fullness and indistinctness of the pulmonary vasculature. PLEURA:Small right pleural effusion. No pneumothorax. MEDIASTINUM:The cardiomediastinal silhouette appears unchanged in size and shape. Atherosclerotic calcifications of the thoracic aorta. BONES/SOFT TISSUES:No acute osseous injury. ABDOMEN:No free air under the diaphragm. IMPRESSION: Mild pulmonary interstitial edema. No focal consolidation. Small right pleural effusion. Signed by: So Garcia MD on 08/18/2019 10:56 AM
--- NOTE | 2019-08-18 11:18 | Consultation ---
DATE OF CONSULTATION: 08/18/2019 Cardiology Consultation CONSULTING PHYSICIAN: Marito Licea MD from Interventional Cardiology. REASON FOR CONSULTATION: Shortness of breath. HISTORY OF PRESENT ILLNESS: A 74-year-old man with diabetes mellitus, hypertension, dyslipidemia, chronic systolic heart failure, status post ICD, left leg wound, presents with complaints of lightheadedness, worsening shortness of breath. He is noted to have hypotension on admission. He reports increased self intake of his medications recently to lose increasing edema. He has complaints of cough. REVIEW OF SYSTEMS: A 12-system review negative except for as noted above. PAST MEDICAL HISTORY: As per HPI. SOCIAL HISTORY: Negative x3. FAMILY HISTORY: Noncontributory. PHYSICAL EXAMINATION: VITAL SIGNS: Hypotensive in the 70s/50s, respiratory rate 18, and heart rate 60 paced rhythm, and O2 saturation 98%. GENERAL: Chronically ill-appearing, awake. NECK: No JVD. CHEST: With decreased breath sounds in bilateral bases. Scattered rales. CARDIOVASCULAR: Regular rate and rhythm. Normal S1, S2. Systolic ejection murmur. ABDOMEN: Soft. Bowel sounds positive. EXTREMITIES: 1+ edema. Erythema to distal bilateral lower extremities. CARDIOVASCULAR MEDICATIONS: Reviewed. LABORATORY DATA: Studies reviewed. Sodium 125, potassium 5.3, chloride 89, bicarbonate 24, BUN 55, creatinine 2.04, glucose 127. White blood cells 11.2, hemoglobin 14.5, platelets 206. PTT 31.8. AST 21, ALT 20, alkaline phosphatase 82, total bilirubin 1.9. ASSESSMENT AND PLAN: A 74-year-old man with severe sepsis and septic shock, suspected pneumonia, diabetes, hypertension, dyslipidemia, acute chronic systolic heart failure status post ICD, left leg wound. RECOMMENDATIONS: 1. Initiate Levophed. 2. Antibiotics initiated. 3. Hold off on blood pressure medication and diuretics for now. 4. NIKKI with mildly elevated potassium. Monitor and adjust according to follow up labs. The patient is receiving IV fluid bolus. We will follow along with you. Thank you for the opportunity to participate in the care of this patient. Marito Licea MD AFV/MODL /[id number]
--- NOTE | 2019-08-18 11:48 | NUR ---
CENTRAL LINE ASSESSED AND WORKING PRIOR TO PT GOING TO FLOOR
[2019-08-18 14:22] LABS: BASOPHILS % 0.3 % (0.0-1.0); EOSINOPHILS % 0.4 % (0.0-6.0); HEMOGLOBIN 12.3 g/dL (14.0-18.0); LYMPHOCYTES # (AUTO) 0.7 (1.0-3.2); LYMPHOCYTES % 6.3 % (18.0-39.1); MEAN CORPUSCULAR HEMOGLOBIN 33.1 pg (28-32); MEAN CORPUSCULAR HGB CONC 33.2 g/dL (31-35); MEAN CORPUSCULAR VOLUME 99.5 fL (81-99); MONOCYTES # (AUTO) 0.8 (0.2-0.8); MONOCYTES % 7.6 % (4.4-11.3); NEUTROPHILS # (AUTO) 9.1 (2.1-6.9); NEUTROPHILS % 84.7 % (38.7-80.0); PLATELET COUNT 187 x10e3/uL (140-360); RED BLOOD COUNT 3.72 x10e6/uL (4.3-5.7); RED CELL DISTRIBUTION WIDTH 17.3 % (11.7-14.4)
[2019-08-18 14:40] LABS: INR 1.5; PROTHROMBIN TIME 19.1 seconds (11.9-14.5)
[2019-08-18 14:55] LABS: CREATINE KINASE MB 3.8 ng/mL (0-5.0)
[2019-08-18 15:20] VITALS: BP 86/64
[2019-08-18] MEDS ORDERED: MUPIROCIN22 GM TOP (15:29)
[2019-08-18] MEDS ORDERED: ACIDOPHILUS1 EAC1 PO (15:30)
[2019-08-18] MEDS ORDERED: BUMETANIDE1 MG PO (15:34)
[2019-08-18] MEDS ORDERED: MIDODRINE HCL10 MG PO (15:37)
[2019-08-18] MEDS ORDERED: METOLAZONE5 MG PO (15:37)
[2019-08-18] MEDS ORDERED: APIXABAN (15:39)
[2019-08-18 16:00] VITALS: BP 85/56
[2019-08-18] MEDS: INSULIN LISPRO 100 UNIT/1 ML 3ML VIAL SQ SCH ×2 (16:30→21:00)
[2019-08-18] MEDS: MIDODRINE HCL 5 MG TABLET PO SCH (17:00)
--- NOTE | 2019-08-18 18:21 | NUR ---
Central line discontinued from left femoral per MD orders. Pressure held for 5 minutes. No bleeding. Patient has a hematoma to the insertion site, it was there prior to removal
[2019-08-18 20:00] VITALS: BP 83/63
[2019-08-18] MEDS ORDERED: ELIQUIS2.5 MG PO (20:42)
[2019-08-18 21:00] VITALS: BP 83/63
[2019-08-19] VITALS (8 sets, daily range): BP systolic 75–122; BP diastolic 48–101
[2019-08-19 05:20] LABS: BASOPHILS % 0.3 % (0.0-1.0); EOSINOPHILS % 0.3 % (0.0-6.0); HEMATOCRIT 30.8 % (38.2-49.6); HEMOGLOBIN 10.4 g/dL (14.0-18.0); LYMPHOCYTES # (AUTO) 1.2 (1.0-3.2); LYMPHOCYTES % 7.8 % (18.0-39.1); MEAN CORPUSCULAR HEMOGLOBIN 32.8 pg (28-32); MEAN CORPUSCULAR HGB CONC 33.8 g/dL (31-35); MEAN CORPUSCULAR VOLUME 97.2 fL (81-99); MONOCYTES # (AUTO) 1.5 (0.2-0.8); MONOCYTES % 10.1 % (4.4-11.3); NEUTROPHILS # (AUTO) 12.2 (2.1-6.9); NEUTROPHILS % 80.7 % (38.7-80.0); PLATELET COUNT 196 x10e3/uL (140-360); RED BLOOD COUNT 3.17 x10e6/uL (4.3-5.7); RED CELL DISTRIBUTION WIDTH 17.2 % (11.7-14.4)
[2019-08-19 05:49] LABS: ALBUMIN 2.6 g/dL (3.5-5.0); ANION GAP 15.4 mmol/L (8-16); CALCIUM 8.7 mg/dL (8.4-10.2); CREATININE, SERUM 1.93 mg/dL (0.72-1.25); POTASSIUM 3.4 mmol/L (3.5-5.1)
--- NOTE | 2019-08-19 07:00 | NUR ---
BEDSIDE SHIFT REPORT ROUNDS FROM JEANIE SMILEY. PT DENIES NEEDS AT THIS TIME.
[2019-08-19] MEDS: INSULIN LISPRO 100 UNIT/1 ML 3ML VIAL SQ SCH ×4 (07:30→21:06)
[2019-08-19] MEDS: ASPIRIN 325 MG TAB PO SCH (08:36)
[2019-08-19] MEDS: MIDODRINE HCL 5 MG TABLET PO SCH ×3 (08:36→17:32)
[2019-08-19] MEDS ORDERED: ALBUMIN 25% 25GM 100ML 0.25 GM/ML BTL IV ONE (09:45)
[2019-08-19] MEDS ORDERED: PIPER-TAZ 3.375 GM 50 ML IV ONE (09:45)
[2019-08-19] MEDS ORDERED: ALBUMIN 25% 25GM 100ML 100 ML IV ONE (10:40)
[2019-08-19] MEDS ORDERED: SODIUM CHLORIDE 0.9% 250ML 250 ML ONE (11:07)
--- NOTE | 2019-08-19 13:44 | NUR ---
WOUND CARE CONSULT FOR 74 YO MALE HX OF pneumonia,sepsis,weakness CEE 18 ON CONSERVATIVE PUP STATUS AND INTERVENTIONS AND VISCO MATTRESS LABS: WBC-15.05 HGB_10.4 GLUCOSE-95 SKIN ASSESSMENT COMPLETE PATIENT PRESENTS WITH MULTIPLE SITES LISTED ON WOUND CARE ASSESSMENT FORM DRY CRACKING BILATERAL FEET RECOMMENDATIONS: NURSING TO CONTINUE TO MAINTAIN CONSERVATIVE PUP STATUS AND INTERVENTIONS AND VISCO MATTRESS NURSING TO CONTINUE TO ASSIST PATIENT OUT OF BED FOR MEALS AND MUCH TOLERATED NURSING TO CONTINUE TO ASSIST PATIENT NEEDED WITH MEALS AND NUTRITIONAL SUPPLEMENTS TO ENSURE PROPER REQUIREMENTS FOR HEALING NURSING TO CONTINUE TO OFFLOAD FEET AND HEELS NEEDED WITH PILLOW SUSPENSION WHEN IN BED NURSING TO CLEAN RIGHT BUTTOCKS STAGE 2 ULCERATION AND BILATERAL KNEE AND LOWER LEG PARTIAL THICKNESS WOUNDS WITH NORMAL SALINE DAILY AND APPLY VENELEX OINTMENT AND LEAVE OPEN TO AIR APPLY ALLEVYN FOAM TO RIGHT BUTTOCKS STAGE 2 ULCERATION NURSING TO CLEAN LEFT DISTAL LOWER LEG SLOUGH COVERED WOUND WITH NORMAL SALINE DAILY AND APPLY SANTYL OINTMENT AND ALLEVYN FOAM DRESSING Addendum: 08/19/19 at 1353 by Sky Pickard RN Amended: Links added.
--- NOTE | 2019-08-19 14:50 | Diagnostic Imaging Report ---
EXAM: CT Chest, Abdomen and Pelvis WITHOUT intravenous contrast INDICATION: Leukocytosis, hypotension COMPARISON: Chest radiograph 08/18/2019 TECHNIQUE: The chest, abdomen and pelvis were scanned utilizing a multidetector helical scanner from the thoracic inlet to the pubic symphysis without administration of IV contrast. Coronal and sagittal reformations were obtained. IV CONTRAST: None ORAL CONTRAST: None COMPLICATIONS: None RADIATION DOSE: Total DLP: 965 mGy*cm Dose modulation, iterative reconstruction, and/or weight based adjustment of the mA/kV was utilized to reduce the radiation dose to as low as reasonably achievable. FINDINGS: LINES/ TUBES: Right and left-sided pacers. LUNGS AND AIRWAYS: The central airways are patent. No focal consolidation or pulmonary edema. Mild bibasilar dependent subsegmental atelectasis. PLEURA: Small right and left pleural effusions. No pneumothorax. HEART AND MEDIASTINUM: Partially visualized thyroid gland appears unremarkable. No supraclavicular, axillary, mediastinal, or hilar lymphadenopathy. Scattered calcified mediastinal and left hilar lymph nodes. The heart is not enlarged. No pericardial effusion. Atherosclerotic calcifications involve the thoracic aorta, coronary arteries, and proximal great vessels. HEPATOBILIARY: Nodular liver surface contour compatible with hepatic cirrhosis. No focal liver lesion. Unremarkable gallbladder. SPLEEN: No splenomegaly. PANCREAS: No focal masses or ductal dilatation. ADRENALS: No adrenal nodules. KIDNEYS/URETERS: No hydronephrosis or renal calculi. Bilateral subcentimeter renal cysts. PELVIC ORGANS/BLADDER: Unremarkable. PERITONEUM / RETROPERITONEUM: Small volume ascites. LYMPH NODES: No lymphadenopathy. VESSELS: Diffuse atherosclerotic calcifications of the nonaneurysmal abdominal aorta and major branches. GI TRACT: No abnormal bowel thickening. No bowel obstruction. Normal appendix. BONES AND SOFT TISSUES: Partially visualized 9.1 x 5.7 cm structure in the anterior left groin extending to the anterior compartment of the left thigh. Substantial soft tissue edema and skin thickening of the upper left thigh. No acute osseous injury. No suspicious lytic or blastic lesions. Grade 1 anterolisthesis at L5-S1. IMPRESSION: Partially visualized 9.1 x 5.7 cm structure in the anterior left groin extending to the anterior compartment of the left thigh is most consistent with a hematoma. Overlying soft tissue edema and skin thickening may reflect overlying cellulitis. Hepatic cirrhosis. Small volume ascites. Small bilateral pleural effusions. Signed by: So Garcai MD on 08/19/2019 2:47 PM
--- NOTE | 2019-08-19 18:35 | Progress Note ---
DATE: 08/19/2019 Cardiology Progress Note SUBJECTIVE: No complaints today. Feels better. Using BiPAP machine. OBJECTIVE: VITAL SIGNS: Temperature 98.3, heart rate 81, blood pressure 78/51, respiratory rate 18, and O2 saturation 97%. GENERAL: In no acute distress. NECK: JVD present in the setting of BiPAP use. CHEST: With decreased breath sounds. CARDIOVASCULAR: Regular rate and rhythm. Normal S1 and S2. ABDOMEN: Soft. EXTREMITIES: Edema in lower extremities with erythema to skin lower half of legs. CARDIOVASCULAR MEDICATIONS: Reviewed. Midodrine 10 mg t.i.d. and aspirin 325 mg daily. STUDIES: Reviewed. Sodium 134, potassium 3.4, chloride 92, bicarbonate 30, BUN 52, creatinine 1.9, and glucose 95. White blood cells 15, hemoglobin 10, and platelets 196. ASSESSMENT: 1. A 74-year-old man with uyocp-vi-yrabvgm severe systolic heart failure, left ventricular ejection fraction 20% on recent echocardiogram read today. 2. Status post ICD. 3. Hypertension. 4. Anemia. 5. Diabetes. 6. Pneumonia and sepsis. RECOMMEND: 1. Continue supportive care. 2. Resume midodrine. 3. As blood pressure allows, consider adding diuretics. 4. Antibiotics per primary service. Marito Licea MD AFBryan/CURTISL /[id number]
[2019-08-20] VITALS (8 sets, daily range): BP systolic 81–118; BP diastolic 51–98
[2019-08-20 05:39] LABS: BASOPHILS % 0.3 % (0.0-1.0); EOSINOPHILS % 0.2 % (0.0-6.0); HEMATOCRIT 24.3 % (38.2-49.6); LYMPHOCYTES % 7.8 % (18.0-39.1); MEAN CORPUSCULAR HEMOGLOBIN 32.3 pg (28-32); MEAN CORPUSCULAR HGB CONC 33.3 g/dL (31-35); MEAN CORPUSCULAR VOLUME 96.8 fL (81-99); MONOCYTES # (AUTO) 1.3 (0.2-0.8); MONOCYTES % 10.2 % (4.4-11.3); NEUTROPHILS # (AUTO) 10.5 (2.1-6.9); NEUTROPHILS % 80.8 % (38.7-80.0); PLATELET COUNT 178 x10e3/uL (140-360); RED BLOOD COUNT 2.51 x10e6/uL (4.3-5.7); RED CELL DISTRIBUTION WIDTH 17.2 % (11.7-14.4)
[2019-08-20 05:58] LABS: ANION GAP 12.4 mmol/L (8-16); CALCIUM 8.5 mg/dL (8.4-10.2); CREATININE, SERUM 1.66 mg/dL (0.72-1.25)
[2019-08-20 06:02] LABS: POTASSIUM 2.4 mmol/L (3.5-5.1)
[2019-08-20 06:04] LABS: HEMOGLOBIN 8.1 g/dL (14.0-18.0)
[2019-08-20 06:39] LABS: HEMATOCRIT 25.1 % (38.2-49.6); HEMOGLOBIN 8.4 g/dL (14.0-18.0)
--- NOTE | 2019-08-20 07:00 | NUR ---
BEDSIDE SHIFT REPORT ROUNDS FROM JEANIE SMILEY. PT DENIES NEEDS AT THIS TIME.
[2019-08-20] MEDS: INSULIN LISPRO 100 UNIT/1 ML 3ML VIAL SQ SCH ×4 (07:30→20:50)
[2019-08-20] MEDS ORDERED: POTASSIUM CHLORIDE 10MEQ EA PO ONE ×2 (08:00→10:00)
[2019-08-20] MEDS: ASPIRIN 325 MG TAB PO SCH (08:44)
[2019-08-20] MEDS: COLLAGENASE 5 GM TUBE TP SCH (08:44)
[2019-08-20] MEDS: MIDODRINE HCL 5 MG TABLET PO SCH ×3 (08:44→17:56)
[2019-08-20] MEDS: BALSAM PERU/CASTOR OIL 60 GM OINT...G. TP SCH (08:44)
--- NOTE | 2019-08-20 13:49 | Progress Note ---
DATE: 08/20/2019 SUBJECTIVE: Denies any chest pain. Shortness of breath relieved using BiPAP machine. Was sterilely prepped. Family member at bedside. The patient's family considering transition to hospice care. OBJECTIVE: VITAL SIGNS: Temperature 97.4, heart rate 74, blood pressure 118/98, respiratory rate 18, and O2 saturation 100%. GENERAL: Chronically ill-appearing and alert, active. BiPAP machine in place. CHEST: With decreased breath sounds in bilateral bases. CARDIOVASCULAR: Regular rate and rhythm. Normal S1 and S2. ABDOMEN: Soft. EXTREMITIES: With 1+ edema. SKIN: With erythema to lower half of legs. CARDIOVASCULAR MEDICATIONS: Reviewed. Potassium 2.4, replete as needed. Creatinine 1.6, glucose 71. White blood cells 13, hemoglobin 8.4, platelets 178. INR 1.5. ASSESSMENT AND PLAN: A 74-year-old man presents with severe oopbj-lb-bfssyws systolic heart failure, pneumonia suspected, however, infiltrates improved on followup CT imaging, persistent hypotension and extravascular volume overload, liver cirrhosis by imaging studies. RECOMMEND: Continue current cardiovascular medications particularly midodrine for now. Supportive care. Overall, guarded prognosis. The patient's family considering hospice will be available as needed. Please call pNayelyralessandro MD KELSEY Zamora/FILIBERTO /[phone]
--- NOTE | 2019-08-20 16:07 | NUR ---
SPOKE WITH PT AND SIGNIFICANT OTHER ABOUT HOSPICE ORDER, GAVE OPTIONS IN NETWORK SIGNED CHOICE FILED IN CHART, MET WITH REP, SIGNED PAPERWORK. [facility] WILL DIS[facility]GE AT 930 IN MORNING, HOSPICE TO TRANSPORT.
--- NOTE | 2019-08-20 16:39 | NUR ---
TALKED TO DR. MONTIEL. PT SET UP FOR HOME HOSPICE AND TRANSPORTATION HOME SCHEDULED FOR 9:30 AM ON 08/20.
[2019-08-21] VITALS: BP 88/54
[2019-08-21 05:23] VITALS: BP 101/83
--- NOTE | 2019-08-21 07:00 | NUR ---
BEDSIDE SHIFT REPORT ROUNDS FROM JEANIE SMILEY. PT DENIES NEEDS AT THIS TIME.
[2019-08-21] MEDS: INSULIN LISPRO 100 UNIT/1 ML 3ML VIAL SQ SCH (07:30)
[2019-08-21 07:39] VITALS: BP 87/60
[2019-08-21 08:33] VITALS: BP 87/60
[2019-08-21] MEDS: COLLAGENASE 5 GM TUBE TP SCH (09:03)
[2019-08-21] MEDS: MIDODRINE HCL 5 MG TABLET PO SCH (09:03)
[2019-08-21] MEDS: ASPIRIN 325 MG TAB PO SCH (09:03)
[2019-08-21] MEDS: BALSAM PERU/CASTOR OIL 60 GM OINT...G. TP SCH (09:03)
--- NOTE | 2019-08-21 09:44 | NUR ---
[facility] HERE TO TRANSPORT PT HOME ON HOSPICE.
--- NOTE | 2019-08-22 09:48 | Discharge Summary ---
PRIMARY CARE DOCTOR: Dr. Jayden Koenig. FINAL DIAGNOSIS: Acute kidney injury due to dehydration, due to over-diuresis. SECONDARY DIAGNOSES: 1. Atrial fibrillation. 2. Severe congestive heart failure with ejection fraction of 20%. 3. Cirrhosis per CT. CONSULTANTS: Dr. Abraham, Cardiology. PROCEDURES/STUDIES PERFORMED: 1. Echocardiogram. 2. CT of the chest, abdomen and pelvis. HISTORY: Per H and P. HOSPITAL COURSE: The patient was admitted with xhtgm-pd-hylckyl hypotension due to taking too much diuretics at home, causing dehydration, causing acute kidney injury. The patient was gently hydrated due to his CHF. Midodrine was added, which helped some. There was no evidence of infection. His Eliquis was switched to aspirin. For atrial fibrillation, stroke prophylaxis. After long conversation with both the patient and his significant other, we consulted the palliative care and subsequently the patient signed out for hospice. The patient was discharged home with hospice. I have updated his primary care doctor about this hospitalization. CONDITION ON DISCHARGE: Hospice. DISCHARGE MEDICATIONS: Please see medication reconciliation form. Yiching MD BEAR Murillo/FILIBERTO /[id number] cc: [facility]
== END 2019-08-21 09:58 | disposition hospice, home (50) | DRG 871 ==
LOC: ER 23:50 → ERHOLD 08-18 06:26 → MED/SURG2 08-18 10:57
PROVIDERS: ADMIT Internal Medicine; ATTEND Internal Medicine
DX: A41.9 Sepsis, unspecified organism (principal); J18.9 Pneumonia, unspecified organism; R65.21 Severe sepsis with septic shock; I50.23 Acute on chronic systolic (congestive) heart failure; N17.9 Acute kidney failure, unspecified; E87.1 Hypo-osmolality and hyponatremia; I13.0 Hypertensive heart and chronic kidney disease with heart failure and stage 1 through stage 4 chronic kidney disease, or unspecified chronic kidney disease; E86.0 Dehydration; I48.91 Unspecified atrial fibrillation; Z79.01 Long term (current) use of anticoagulants; K74.60 Unspecified cirrhosis of liver; Z51.5 Encounter for palliative care; Z95.810 Presence of automatic (implantable) cardiac defibrillator; D64.9 Anemia, unspecified; Z03.818 Encounter for observation for suspected exposure to other biological agents ruled out; N18.9 Chronic kidney disease, unspecified
CPT/HCPCS: 36415; 70450; 71045; 71250; 74176; 80048; 80053; 81001; 82550; 82553; 82948; 83605; 83690; 83880; 84132; 84443; 84484; 85014; 85018; 85025; 85610; 85730; 87040; 87635; 93005; 93306; 97139; 99251; 99284; J2543; J7030; J7050; P9047